=== PATIENT | male | born 1960 | race Caucasian/White ===

== ENCOUNTER 2017-04-28 15:55 | Emergency (ER) | payer SELFPAY ==
[~2017-04-28] VITALS: Ht 170.2 cm; Wt 131.2 kg
[~2017-04-28 15:55] MED LIST: ASPI81TA60 PO; FENO160T10 PO; LASI40TA PO; LISI10TA4 PO; METO50TA7 PO; OMEP40CA2 PO; PROAAER10 INH; SIMV80TA PO; SYNT50TA PO; VITA10002 PO; VITA1CAP40 PO
[2017-04-28] MEDS ORDERED: IBUP-1022 PO (17:14)
[2017-04-28] MEDS ORDERED: ROBA500T PO (17:14)
[2017-04-28 17:33] VITALS: BP 165/91
== END 2017-04-28 17:35 | disposition home or self-care (01) ==
LOC: M ED 15:55
DX: M54.31 Sciatica, right side (principal); I25.10 Atherosclerotic heart disease of native coronary artery without angina pectoris; I25.2 Old myocardial infarction; I10 Essential (primary) hypertension; G89.29 Other chronic pain; J45.909 Unspecified asthma, uncomplicated; Z87.891 Personal history of nicotine dependence; Z88.1 Allergy status to other antibiotic agents; Z79.82 Long term (current) use of aspirin; Z79.899 Other long term (current) drug therapy

== ENCOUNTER → 2017-08-05 | Outpatient (REF) | payer OTHER ==
[~2017-08-05] MED LIST changes: +IBUP-1022 PO; +ROBA500T PO
[2017-08-05 13:42] LABS: BASO # 0.1 10^3/uL (0.0-0.2); BASO % 0.7 % (0.0-1.0); EOS # 0.2 10^3/uL (0.0-0.50); EOS % 3.1 % (0.0-3.0); LYMPH # 1.4 10^3/uL (1.5-4.5); LYMPH % 20.7 % (24.0-44.0); MEAN CORPUSCULAR HEMOGLOBIN 29.5 pg (27.0-33.0); MEAN CORPUSCULAR HGB CONC 32.5 g/dl (32.0-36.5); MEAN CORPUSCULAR VOLUME 90.7 fl (80.0-96.0); MONO # 0.8 10^3/uL (0.0-0.8); MONO % 12.4 % (0.0-5.0); NEUTROPHILS # 4.2 10^3/uL (1.8-7.7); NEUTROPHILS % 62.1 % (36.0-66.0); PLATELET COUNT, AUTOMATED 244 10^3/uL (150-450); RED CELL DISTRIBUTION WIDTH 12.8 % (11.5-14.5); WHITE BLOOD COUNT 6.8 10^3/uL (4.0-10.0)
[2017-08-05 14:19] LABS: ALBUMIN 3.6 GM/DL (3.2-5.2); ALBUMIN/GLOBULIN RATIO 0.97 (1.00-1.93); ALKALINE PHOSPHATASE 106 U/L (45-117); ALT/SGPT 39 U/L (12-78); ANION GAP 8 MEQ/L (8-16); AST/SGOT 22 U/L (7-37); BILIRUBIN,TOTAL 0.3 MG/DL (0.2-1.0); BLOOD UREA NITROGEN 16 MG/DL (7-18); CALCIUM LEVEL 9.3 MG/DL (8.5-10.1); CARBON DIOXIDE LEVEL 29 MEQ/L (21-32); CHLORIDE LEVEL 106 MEQ/L (98-107); CREATININE FOR GFR 1.25 MG/DL (0.70-1.30); GLOMERULAR FILTRATION RATE > 60.0 (>56); GLUCOSE, FASTING 91 MG/DL (70-105); POTASSIUM SERUM 4.6 MEQ/L (3.5-5.1); SODIUM LEVEL 143 MEQ/L (136-145); TOTAL PROTEIN 7.3 GM/DL (6.4-8.2)
== END ==
LOC: M SFHCPLAZ 11:40
PROVIDERS: ATTEND Family Medicine
DX: N18.3 Chronic kidney disease, stage 3 (moderate) (principal)

== ENCOUNTER → 2018-01-06 | Outpatient (REF) | payer OTHER ==
[2018-01-06 18:32] LABS: ESTIMATED AVERAGE GLUCOSE 126 MG/DL (60-110); VITAMIN B12 LEVEL 1102 PG/ML (247-911)
[2018-01-06 18:33] LABS: ALBUMIN/GLOBULIN RATIO 0.93 (1.00-1.93); ALKALINE PHOSPHATASE 83 U/L (45-117); ALT/SGPT 31 U/L (12-78); ANION GAP 6 MEQ/L (8-16); AST/SGOT 29 U/L (7-37); BILIRUBIN,TOTAL 0.5 MG/DL (0.2-1.0); BLOOD UREA NITROGEN 18 MG/DL (7-18); C REACTIVE PROTEIN QUANTITATIV 1.07 MG/DL (0.00-0.30); CALCIUM LEVEL 9.5 MG/DL (8.5-10.1); CARBON DIOXIDE LEVEL 31 MEQ/L (21-32); CHLORIDE LEVEL 105 MEQ/L (98-107); CHOLESTEROL LEVEL 187 MG/DL (<200); CHOLESTEROL RISK RATIO 4.921 (<5); CPK CREATINE PHOSPHOKINASE 124 U/L (39-308); CREATININE FOR GFR 1.47 MG/DL (0.70-1.30); FREE T4 1.19 NG/DL (0.76-1.46); GLOMERULAR FILTRATION RATE 52.6 (>56); GLUCOSE, FASTING 72 MG/DL (70-100); HDL CHOLESTEROL 38 MG/DL (>40); LDL CHOLESTEROL 113.8 MG/DL (<100); MAGNESIUM LEVEL 2.1 MG/DL (1.8-2.4); NON-HDL-C 149 MG/DL; POTASSIUM SERUM 4.4 MEQ/L (3.5-5.1); PSA SCREENING 0.69 NG/ML (< 4.0); SODIUM LEVEL 142 MEQ/L (136-145); TOTAL PROTEIN 8.3 GM/DL (6.4-8.2); TRIGLYCERIDES LEVEL 176 MG/DL (<150)
[2018-01-06 19:15] LABS: BASO # 0.1 10^3/uL (0.0-0.2); BASO % 0.7 % (0.0-1.0); EOS # 0.1 10^3/uL (0.0-0.50); EOS % 1.7 % (0.0-3.0); HEMATOCRIT 45.8 % (42.0-52.0); HEMOGLOBIN 15.2 g/dl (13.5-17.5); IMMATURE GRANULOCYTE % 0.7 % (0-3.0); LYMPH # 1.9 10^3/uL (1.5-4.5); LYMPH % 25.7 % (24.0-44.0); MEAN CORPUSCULAR HEMOGLOBIN 30.1 pg (27.0-33.0); MEAN CORPUSCULAR HGB CONC 33.2 g/dl (32.0-36.5); MEAN CORPUSCULAR VOLUME 90.7 fl (80.0-96.0); MONO # 0.7 10^3/uL (0.0-0.8); MONO % 9.3 % (0.0-5.0); NEUTROPHILS # 4.6 10^3/uL (1.8-7.7); NEUTROPHILS % 61.9 % (36.0-66.0); PLATELET COUNT, AUTOMATED 326 10^3/uL (150-450); RED BLOOD COUNT 5.05 10^6/uL (4.30-6.10); RED CELL DISTRIBUTION WIDTH 12.5 % (11.5-14.5); RETIC HEMOGLOBIN EQUIVALENT 35.1 pg (24-36); RETICULOCYTE # 118.2 10^9/L (17-77); RETICULOCYTE % 2.3 % (0.5-1.5); WHITE BLOOD COUNT 7.5 10^3/uL (4.0-10.0)
== END ==
LOC: M SFHCPLAZ 15:53
DX: E78.5 Hyperlipidemia, unspecified (principal); E03.9 Hypothyroidism, unspecified; I10 Essential (primary) hypertension; R73.01 Impaired fasting glucose; E53.8 Deficiency of other specified B group vitamins; Z12.5 Encounter for screening for malignant neoplasm of prostate
CPT/HCPCS: 82550

== ENCOUNTER 2018-06-17 15:57 | Emergency (ER) | payer OTHER ==
[2018-06-17 17:41] LABS: KETONE, URINE AUTO RFX NEGATIVE (NEGATIVE); LEUKOCYTE ESTERASE UR AUTO RFX 2+ (NEGATIVE); MUCUS, URINE RFX SMALL (NEGATIVE); NITRITE, URINE AUTO RFX NEGATIVE (NEGATIVE); RBC, URINE AUTO RFX 26 /HPF (0-3); SPECIFIC GRAVITY UR AUTO RFX 1.024 (1.002-1.035); SQUAM EPITHELIAL CELL UR AURFX 0 /HPF (0-6); WBC, URINE AUTO RFX 105 /HPF (0-3)
[2018-06-17] MEDS: NITROFURANTOIN (MACROBID) 100 MG CAP PO (18:01)
== END 2018-06-17 18:06 | disposition home or self-care (01) ==
LOC: M ED 15:57
DX: N39.0 Urinary tract infection, site not specified (principal); I10 Essential (primary) hypertension; J45.909 Unspecified asthma, uncomplicated; I25.10 Atherosclerotic heart disease of native coronary artery without angina pectoris; I25.2 Old myocardial infarction; E03.9 Hypothyroidism, unspecified; N28.9 Disorder of kidney and ureter, unspecified; Z87.09 Personal history of other diseases of the respiratory system; Z79.899 Other long term (current) drug therapy; Z79.82 Long term (current) use of aspirin; Z79.890 Hormone replacement therapy; Z88.1 Allergy status to other antibiotic agents; Z87.891 Personal history of nicotine dependence
CPT/HCPCS: 71046

== ENCOUNTER → 2018-08-24 | Outpatient (CLI) | payer OTHER | LOC: M LRY 15:20 | DX: J45.901 Unspecified asthma with (acute) exacerbation (principal) | CPT/HCPCS: 71046 ==

== ENCOUNTER → 2018-09-22 | Outpatient (REF) | payer OTHER ==
[~2018-09-22] MED LIST changes: -LASI40TA PO; +LASI40TA9 PO; +MACR100C43 PO; -SIMV80TA PO; +SIMV80TA13 PO; -VITA1CAP40 PO; +VITA50005 PO
[2018-09-22 14:09] LABS: BASO % 0.4 % (0.0-1.0); EOS # 0.2 10^3/uL (0.0-0.50); EOS % 2.7 % (0.0-3.0); HEMATOCRIT 43.6 % (42.0-52.0); HEMOGLOBIN 14.4 g/dl (13.5-17.5); LYMPH # 1.7 10^3/uL (1.5-4.5); LYMPH % 25.3 % (24.0-44.0); MEAN CORPUSCULAR HEMOGLOBIN 30.1 pg (27.0-33.0); MONO # 0.7 10^3/uL (0.0-0.8); MONO % 10.1 % (0.0-5.0); NEUTROPHILS # 4.1 10^3/uL (1.8-7.7); NEUTROPHILS % 60.8 % (36.0-66.0); PLATELET COUNT, AUTOMATED 272 10^3/uL (150-450); RED BLOOD COUNT 4.79 10^6/uL (4.30-6.10); WHITE BLOOD COUNT 6.7 10^3/uL (4.0-10.0)
[2018-09-22 14:40] LABS: ALBUMIN 3.5 GM/DL (3.2-5.2); BILIRUBIN,TOTAL 0.2 MG/DL (0.2-1.0); CALCIUM LEVEL 9.1 MG/DL (8.5-10.1); CHOLESTEROL RISK RATIO 4.885 (<5); CREATININE FOR GFR 1.77 MG/DL (0.70-1.30); FREE T4 0.94 NG/DL (0.76-1.46); GLOMERULAR FILTRATION RATE 42.3 (>56); POTASSIUM SERUM 4.5 MEQ/L (3.5-5.1); THYROID STIMULATING HORMONE 1.49 uIU/ML (0.358-3.740); TOTAL PROTEIN 7.4 GM/DL (6.4-8.2)
[2018-09-22 16:04] LABS: HEMOGLOBIN A1c 6.8 %
== END ==
LOC: M SFHCPLAZ 13:06
PROVIDERS: ATTEND Family Medicine
DX: N18.3 Chronic kidney disease, stage 3 (moderate) (principal); E78.5 Hyperlipidemia, unspecified; E03.9 Hypothyroidism, unspecified; R73.01 Impaired fasting glucose

== ENCOUNTER → 2019-11-09 | Outpatient (REF) | payer OTHER, SELFPAY ==
[~2019-11-09] MED LIST changes: +CYAN100049 PO; -OMEP40CA2 PO; +OMEP40CA97 PO; -VITA10002 PO
[2019-11-09 14:17] LABS: ALBUMIN 3.8 GM/DL (3.2-5.2); BILIRUBIN,TOTAL 0.7 MG/DL (0.2-1.0); CALCIUM LEVEL 9.4 MG/DL (8.5-10.1); CREATININE FOR GFR 1.5 MG/DL (0.70-1.30); POTASSIUM SERUM 4.8 MEQ/L (3.5-5.1); THYROID STIMULATING HORMONE 1.2 uIU/ML (0.358-3.740); TOTAL PROTEIN 7.6 GM/DL (6.4-8.2)
[2019-11-09 14:22] LABS: HEMOGLOBIN A1c 6.4 %
== END ==
LOC: M SFHCPLAZ 10:38
PROVIDERS: ATTEND Family Medicine
DX: R73.01 Impaired fasting glucose (principal); N18.3 Chronic kidney disease, stage 3 (moderate); E03.9 Hypothyroidism, unspecified

== ENCOUNTER 2020-02-03 07:30 | Emergency (ER) | payer SELFPAY ==
[~2020-02-03] VITALS: Ht 167.6 cm; Wt 126.4 kg
[2020-02-03] MEDS ORDERED: FLUTISP (07:53)
[2020-02-03] MEDS ORDERED: B-12100020 PO (07:53)
[2020-02-03] MEDS ORDERED: VITA50005 PO (07:53)
[2020-02-03] MEDS ORDERED: OMEP-221 PO (07:53)
[2020-02-03] MEDS ORDERED: [UNRECOGNIZED DRUG - CODE] PO (07:53)
[2020-02-03] MEDS ORDERED: AUGM875T28 PO (08:59)
[2020-02-03 09:41] VITALS: BP 134/73
== END 2020-02-03 09:42 | disposition home or self-care (01) ==
LOC: M ED 07:30
DX: R04.0 Epistaxis (principal); I25.10 Atherosclerotic heart disease of native coronary artery without angina pectoris; J45.909 Unspecified asthma, uncomplicated; E78.5 Hyperlipidemia, unspecified; I12.9 Hypertensive chronic kidney disease with stage 1 through stage 4 chronic kidney disease, or unspecified chronic kidney disease; N18.9 Chronic kidney disease, unspecified; K21.9 Gastro-esophageal reflux disease without esophagitis; E03.9 Hypothyroidism, unspecified; Z88.1 Allergy status to other antibiotic agents; Z79.899 Other long term (current) drug therapy; Z79.82 Long term (current) use of aspirin; Z79.2 Long term (current) use of antibiotics

== ENCOUNTER 2020-04-09 09:32 | Emergency (ER) | payer BC, SELFPAY ==
[~2020-04-09] VITALS: Ht 170.2 cm; Wt 142.8 kg
[~2020-04-09 09:32] MED LIST changes: +AUGM875T28 PO; +B-12100020 PO; +FLUTISP; +OMEP-221 PO; +[UNRECOGNIZED DRUG - CODE] PO
[2020-04-09 10:24] LABS: BASO % 0.5 % (0.0-1.0); EOS # 0.2 10^3/uL (0.0-0.5); EOS % 2.5 % (0.0-3.0); HEMOGLOBIN 15.8 g/dl (13.5-17.5); LYMPH # 1.8 10^3/uL (1.5-5.0); LYMPH % 27.1 % (24.0-44.0); MEAN CORPUSCULAR HEMOGLOBIN 29.6 pg (27.0-33.0); MEAN CORPUSCULAR HGB CONC 31.6 g/dl (32.0-36.5); MEAN CORPUSCULAR VOLUME 93.6 fl (80.0-96.0); MONO # 0.7 10^3/uL (0.0-0.8); MONO % 11.1 % (0.0-5.0); NEUTROPHILS # 3.8 10^3/uL (1.5-8.5); NEUTROPHILS % 58.3 % (36.0-66.0); PLATELET COUNT, AUTOMATED 275 10^3/uL (150-450); RED BLOOD COUNT 5.34 10^6/uL (4.30-6.10); WHITE BLOOD COUNT 6.5 10^3/uL (4.0-10.0)
[2020-04-09] MEDS ORDERED: FUROSEMIDE 40MG/4ML VIAL (J1940) IV ONE (10:45)
[2020-04-09 11:21] LABS: ALBUMIN 3.7 GM/DL (3.2-5.2); ALT/SGPT 40 U/L (12-78); BILIRUBIN,DIRECT < 0.1 MG/DL (0.0-0.2); BILIRUBIN,TOTAL 0.5 MG/DL (0.2-1.0); NT-PRO BNP 227 PG/ML (<125); TOTAL PROTEIN 7.8 GM/DL (6.4-8.2)
--- NOTE | 2020-04-09 12:00 | REP ---
REASON: Chest pain. COMPARISON: 08/24/2018 FINDINGS: The technique utilized in obtaining the radiograph has magnified the cardiac silhouette and accentuated the interstitial markings. The superior mediastinal structures are midline. The cardiac silhouette is unremarkable in size, shape, and position. The diaphragmatic surfaces of the lungs are regular, and the costophrenic angles are clear. The pulmonary morales are clear. The imaged osseous structures are intact. IMPRESSION: There is no acute cardiopulmonary disease. No change from the prior exam. Electronically Signed by Ney Farooq DO 04/09/2020 12:56 P
[2020-04-09 12:20] LABS: APPEARANCE, URINE CLEAR (CLEAR); BACTERIA, URINE AUTO NEGATIVE (NEGATIVE); BILIRUBIN, URINE AUTO NEGATIVE (NEGATIVE); BLOOD, URINE BLOOD NEGATIVE (NEGATIVE); COLOR, URINE STRAW (YELLOW); GLUCOSE, URINE (UA) AUTO NEGATIVE (NEGATIVE); KETONE, URINE AUTO NEGATIVE (NEGATIVE); LEUKOCYTE ESTERASE, URINE AUTO NEGATIVE (NEGATIVE); NITRITE, URINE AUTO NEGATIVE (NEGATIVE); PROTEIN, URINE AUTO NEGATIVE (NEGATIVE); RBC, URINE AUTO 0 /HPF (0-3); SPECIFIC GRAVITY URINE AUTO 1.009 (1.002-1.035); SQUAMOUS EPITHELIAL CELL UR AU 0 /HPF (0-6); UROBILINOGEN, URINE AUTO 0.2 mg/dL (0.0-2.0); WBC, URINE AUTO 0 /HPF (0-3)
[2020-04-09 13:15] VITALS: BP 125/67
[2020-04-09] MEDS ORDERED: LASI40TA9 PO (13:17)
--- NOTE | 2020-04-09 17:48 | ECGEPIP ---
[facility] - ED Test Date: 2020-04-09 Pat Name: JAIME VEGA Department: Room: - Gender: Male Solution Director: christina : 1960 Requested By: JAIME Emanuel Order Number: [id number] Reading MD: Rukhsana Newell Measurements Intervals [place] Rate: 57 P: 46 NE: 182 QRS: 39 QRSD: 89 T: 72 QT: 401 QTc: 391 Interpretive Statements SINUS BRADYCARDIA ANTEROSEPTAL MYOCARDIAL INFARCTION, OF INDETERMINATE AGE INFERIOR INFARCT, OF INDETERMINATE AGE CLINICAL CORRELATION Electronically Signed on 04-09-2020 17:47:47 EDT by Rukhsana Newell
--- NOTE | 2020-04-09 17:53 | ECGEPIP ---
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
== END 2020-04-09 13:28 | disposition home or self-care (01) ==
LOC: M ED 09:32
DX: I16.0 Hypertensive urgency (principal); R00.1 Bradycardia, unspecified; I25.10 Atherosclerotic heart disease of native coronary artery without angina pectoris; I10 Essential (primary) hypertension; E78.5 Hyperlipidemia, unspecified; J45.909 Unspecified asthma, uncomplicated; N18.3 Chronic kidney disease, stage 3 (moderate); K21.9 Gastro-esophageal reflux disease without esophagitis; Z87.891 Personal history of nicotine dependence; Z82.49 Family history of ischemic heart disease and other diseases of the circulatory system; Z79.82 Long term (current) use of aspirin; Z79.899 Other long term (current) drug therapy; Z88.1 Allergy status to other antibiotic agents
CPT/HCPCS: 71045; 80047; 80076; 81001; 83880; 84443; 85025; 93005; 93041; 94760; 96374; 99285; J1940

== ENCOUNTER → 2020-07-23 | Outpatient (CLI) | payer BC | LOC: M LABSMTC 13:42 | PROVIDERS: ATTEND Family Medicine | DX: Z20.828 Contact with and (suspected) exposure to other viral communicable diseases (principal) | CPT/HCPCS: C9803; U0003 ==

== ENCOUNTER → 2020-10-10 | Outpatient (REF) | payer BC ==
[2020-10-10 13:54] LABS: HEMOGLOBIN A1c 6.1 %
[2020-10-10 14:17] LABS: ALBUMIN 3.8 GM/DL (3.2-5.2); BILIRUBIN,TOTAL 0.4 MG/DL (0.2-1.0); CALCIUM LEVEL 9.1 MG/DL (8.8-10.2); CHOLESTEROL RISK RATIO 4.848 (<5); CREATININE FOR GFR 1.76 MG/DL (0.70-1.30); FREE T4 1.09 NG/DL (0.76-1.46); GLOMERULAR FILTRATION RATE 42.3 (>49); POTASSIUM SERUM 4.8 MEQ/L (3.5-5.1); THYROID STIMULATING HORMONE 2.59 uIU/ML (0.358-3.740); TOTAL PROTEIN 7.5 GM/DL (6.4-8.2)
[2020-10-10 14:32] LABS: CREATININE, URINE 18.9 MG/DL; MALB URINE SIEMENS < 5.0 MG/L; MAU/CREAT RATIO 26.4 MCG/MG (0.0-30.0)
== END ==
LOC: M SFHCPLAZ 11:10
PROVIDERS: ATTEND Family Medicine
DX: R73.01 Impaired fasting glucose (principal); E03.9 Hypothyroidism, unspecified; I10 Essential (primary) hypertension; E78.5 Hyperlipidemia, unspecified; Z12.5 Encounter for screening for malignant neoplasm of prostate

== ENCOUNTER → 2021-05-15 | Outpatient (CLI) | payer BC ==
[~2021-05-15] MED LIST changes: +ERGO500029 PO; +LISI10TA22 PO; -LISI10TA4 PO; +OMEP40CA4 PO; -OMEP40CA97 PO
--- NOTE | 2021-05-15 14:17 | REP ---
INDICATION: CKD STAGE 3A. COMPARISON: 10/12/2007. TECHNIQUE: Real-time sonographic evaluation of the kidneys is performed. The study is limited by patient body habitus. FINDINGS: The left kidney demonstrates severe cortical thinning and hyperechoic echotexture. There is no hydronephrosis bilaterally. No renal mass is visualized. The right kidney measures 13.0 x 7.1 x 6.8 cm. Left renal dimensions are 6.2 x 4.3 x 4.0 cm. The urinary bladder is unremarkable. Bladder measures 12.6 x 7.4 x 5.9 cm, total volume 359 cc. IMPRESSION: Severe left renal atrophy. No hydronephrosis. <Electronically signed by Adebayo Rhoades > 05/15/21 [id number]
== END ==
LOC: M RAD 13:41
PROVIDERS: ATTEND Internal Medicine Nephrology
DX: N18.30 Chronic kidney disease, stage 3 unspecified (principal); N26.1 Atrophy of kidney (terminal)

== ENCOUNTER 2021-07-03 16:00 | Emergency (ER) | payer BC ==
[~2021-07-03] VITALS: Ht 170.2 cm; Wt 139.9 kg
[~2021-07-03 16:00] MED LIST changes: -FLUTISP; +FLUTISP NARES
[2021-07-03] MEDS: COMBIVENT RESPIMAT 100-20MCG INHALER 4GM INH SCH ×3 (19:05→21:28)
[2021-07-03] MEDS ORDERED: ACETAMINOPHEN 500 MG TAB PO ONE (19:30)
[2021-07-03 20:31] LABS: BASO % 0.2 % (0.0-1.0); HEMATOCRIT 42.1 % (42.0-52.0); HEMOGLOBIN 14.1 g/dl (13.5-17.5); LYMPH # 0.8 10^3/uL (1.5-5.0); LYMPH % 12.4 % (24.0-44.0); MEAN CORPUSCULAR HEMOGLOBIN 30.1 pg (27.0-33.0); MEAN CORPUSCULAR HGB CONC 33.5 g/dl (32.0-36.5); MEAN CORPUSCULAR VOLUME 89.8 fl (80.0-96.0); MONO # 0.4 10^3/uL (0.0-0.8); MONO % 6.9 % (2.0-8.0); NEUTROPHILS # 5.1 10^3/uL (1.5-8.5); NEUTROPHILS % 80.2 % (36.0-66.0); PLATELET COUNT, AUTOMATED 204 10^3/uL (150-450); RED BLOOD COUNT 4.69 10^6/uL (4.30-6.10); WHITE BLOOD COUNT 6.4 10^3/uL (4.0-10.0)
[2021-07-03 21:02] LABS: ALBUMIN 2.9 GM/DL (3.2-5.2); ALT/SGPT 27 U/L (12-78); BILIRUBIN,TOTAL 0.5 MG/DL (0.2-1.0); BLOOD UREA NITROGEN 21 MG/DL (7-18); CALCIUM LEVEL 8.1 MG/DL (8.8-10.2); CARBON DIOXIDE LEVEL 27 MEQ/L (21-32); CHLORIDE LEVEL 98 MEQ/L (98-107); CK-MB VALUE MASS < 1.0 NG/ML (<3.6); CPK CREATINE PHOSPHOKINASE 473 U/L (39-308); GLOMERULAR FILTRATION RATE 38.7 (>49); GLUCOSE, FASTING 106 MG/DL (70-100); LDH LACTATE DEHYDROGENASE 300 U/L (87-241); MB/CK RELATIVE INDEX 0.21 (< OR =4); NT-PRO BNP 208 PG/ML (<125); POTASSIUM SERUM 4.2 MEQ/L (3.5-5.1); SODIUM LEVEL 135 MEQ/L (136-145); TOTAL PROTEIN 7.4 GM/DL (6.4-8.2); TROPONIN I < 0.02 NG/ML (< 0.10)
[2021-07-03 22:08] VITALS: O2SAT 92
--- NOTE | 2021-07-03 22:44 | REPVR ---
PROCEDURE INFORMATION: Exam: XR Chest Exam date and time: 07/03/2021 9:18 PM Age: 60 years old Clinical indication: Coronavirus workup TECHNIQUE: Imaging protocol: XR of the chest. Views: 1 view. COMPARISON: CR PORTABLE CHEST X-RAY 04/09/2020 10:23 AM (The report from this study was not available for review at the time of this interpretation.) FINDINGS: Lungs: There are airspace opacities in a predominantly peripheral distribution in both lungs. Pleural spaces: Unremarkable. No pleural effusion. No pneumothorax. Heart/Mediastinum: Unremarkable. No cardiomegaly. Bones/joints: Unremarkable. IMPRESSION: Airspace opacities in a predominantly peripheral distribution in both lungs, which can be seen with pneumonia, including COVID-19 pneumonia. Electronically signed by: Juan Brooks On 07/03/2021 22:44:00 PM
[2021-07-03] MEDS ORDERED: IBUPROFEN 800 MG TAB PO ONE (23:35)
[2021-07-04 00:12] LABS: CK-MB VALUE MASS 1.2 NG/ML (<3.6); CPK CREATINE PHOSPHOKINASE 650 U/L (39-308); MB/CK RELATIVE INDEX 0.18 (< OR =4); TROPONIN I < 0.02 NG/ML (< 0.10)
[2021-07-04 01:35] LABS: ABG BASE EXCESS -1.7 (-2.0-2.0); ABG HCO3 22.3 MEQ/L (22.0-26.0); ABG O2 SATURATION 95.7 % (95.0-99.0); ABG PARTIAL PRESSURE CO2 35.8 mmHg (35.0-45.0); ABG PARTIAL PRESSURE O2 75.5 mmHg (75.0-100.0); ABG TOTAL CO2 23.4 MEQ/L (23.0-31.0); ABG pH (ARTERIAL) 7.413 UNITS (7.350-7.450)
[2021-07-04] MEDS ORDERED: TESS100C PO (01:59)
[2021-07-04] MEDS ORDERED: ONDA4TAB6 PO (01:59)
[2021-07-04 03:10] VITALS: BP 129/64
--- NOTE | 2021-07-04 06:27 | ECGEPIP ---
[facility] - ED Test Date: 2021-07-03 Pat Name: HORACIO VEGA Department: Room: - Gender: Male Inspector Toys: RODGER : 1960 Requested By: FAWN Aviles PA-C Order Number: [id number] Reading MD: Horacio Jamil Measurements Intervals [place] Rate: 78 P: 78 [place]: 156 QRS: 55 QRSD: 90 T: 79 QT: 374 QTc: 426 Interpretive Statements Normal sinus rhythm Anteroseptal infarct , age undetermined Normalized ST changes when compared to tracing done 04-09-20 Baseline artifact Electronically Signed on 07-04-2021 6:27:07 EDT by Horacio Jamil
== END 2021-07-04 03:12 | disposition home or self-care (01) ==
LOC: M ED 16:00
DX: U07.1 COVID-19 (principal); E66.9 Obesity, unspecified; I25.10 Atherosclerotic heart disease of native coronary artery without angina pectoris; I25.2 Old myocardial infarction; E11.9 Type 2 diabetes mellitus without complications; I10 Essential (primary) hypertension; J45.909 Unspecified asthma, uncomplicated; K21.9 Gastro-esophageal reflux disease without esophagitis; E78.5 Hyperlipidemia, unspecified; K76.0 Fatty (change of) liver, not elsewhere classified; N18.30 Chronic kidney disease, stage 3 unspecified; Z87.09 Personal history of other diseases of the respiratory system; Z87.01 Personal history of pneumonia (recurrent); Z87.891 Personal history of nicotine dependence; Z79.82 Long term (current) use of aspirin; Z79.899 Other long term (current) drug therapy; Z88.1 Allergy status to other antibiotic agents

== ENCOUNTER 2021-07-06 09:22 | Outpatient (CLI) | payer BC ==
--- NOTE | 2021-07-04 04:46 | HPEPDOC ---
[facility] Medical History & Physical Date of Admission Jul 04, 2021 Date of Service: Jul 04, 2021 Primary Care Physician: Chris Nation M.D. Attending Physician: JIMBO TELLEZ MD History and Physical TIME OF SERVICE: 225AM CHIEF COMPLAINT: shortness of breath HISTORY OF PRESENT ILLNESS: Despite receiving 2 doses of the Moderna vaccine Mr. Perdue has had shortness of breath, chest tightness and diarrhea for about 7 days; he denies knowledge of exposure to anyone with COVID. REVIEW OF SYSTEMS: per HPI PAST MEDICAL/ SURGICAL HISTORY: Asthma, Chronic CAD s/p PCI to RCA, DLP, Pre-DM, Hypothyroidism, essential HTN, unspecified CKD (has 1 working kidney), MARTINEZ, Class 3 obesity, L4/L5 discectomy, tonsillectomy w adenoidectomy FAMILY HISTORY: HTN, DLP, Asthma, Lung cancer, CKD, CAD SOCIAL HISTORY: He is a former smoker ALLERGIES: Please see below. HOME MEDICATIONS: Please see below. PHYSICAL EXAMINATION: VITAL SIGNS: T 98.8, HR 71, BP 129/64, O2 100% on RA GENERAL APPEARANCE: well-nourished and developed/ NAD HEENT: EOMI / mask covering lower face CARDIOVASCULAR: RRR/NMRG LUNGS: coughing occasionally slight expiratory wheezing / not using accessory muscles/ able to speak full sentences w/o having to stop to take a break ABDOMEN: contour convex MUSCULOSKELETAL: NCAT INTEGUMENT: not flushed / slightly diaphoretic NEUROLOGICAL: speech not dysarthric PSYCHIATRIC: A&O / able to understand and follow all commands LABORATORY DATA: CBC, CMP, Coags reviewed / ABG pH 7.4, PCO2 35, PO2 75.5 IMAGING: Chest xray "IMPRESSION: Airspace opacities in a predominantly peripheral distribution in both lungs, which can be seen with pneumonia, including COVID-19 pneumonia. MICROBIOLOGY: + COVID 19 ASSESSMENT: is a 60 yr old M w a hx of Asthma, CAD, HTN, DLP, Pre-DM, Hypothyroidism, unspecified CKD, MARTINEZ, obesity who has a break through COVID-19 infection without hypoxemia after receiving Moderna vaccines; he will return on for MAB infusion PLAN: 1 Break through COVID 19 infection Consent was obtained. Plan: place outpatient COVID order set Home Medications Scheduled Aspirin (Aspirin) 81 Mg Tab, 81 MG PO DAILY Benzonatate (Tessalon Perle) 100 Mg Capsule, 1 CAP PO TID for cough Cyanocobalamin (Vitamin B-12) (B-12) 1,000 Mcg Tablet, PO DAILY Ergocalciferol (Vitamin D2) (Vitamin D2) 50,000 Units Cap, PO weekly Fenofibrate (Fenofibrate) 160 Mg Tab, 160 MG PO QPM Fluticasone Propionate (Fluticasone Propionate) 16 Gm [place].susp, NA DAILY Furosemide (Lasix) 40 Mg Tab, 40 MG PO DAILY Furosemide (Lasix) 40 Mg Tablet, 1 TAB PO DAILY Levothyroxine Sodium (Synthroid) 50 Mcg Tab, 50 MCG PO 0700 Lisinopril (Lisinopril) 10 Mg Tab, 10 MG PO BID Metoprolol Tartrate (Metoprolol Tartrate) 50 Mg Tab, 50 MG PO BID Omeprazole (Omeprazole) 40 Mg Capsule.dr, PO DAILY Simvastatin - High Dose (Simvastatin) 80 Mg Tab, 80 MG PO QPM Scheduled PRN Albuterol Sulfate (Proair Hfa) 108 Mcg/Act Aer, 108 MCG INH Q6H PRN for SOB/WHEEZING Ondansetron (Ondansetron Odt) 4 Mg Tab.rapdis, 4 MG PO Q6-8HP PRN for nausea/vomiting Allergies Coded Allergies: clarithromycin (Verified Allergy, Intermediate, bumps on arms, 02/03/20) A-FIB/CHADSVASC A-FIB History Current/History of A-Fib/PAF?: No Current PO Anticoag Therapy: No JIMBO TELLEZ MD Jul 04, 2021 04:46
[~2021-07-06 09:22] MED LIST changes: +ACETAMINOPHEN TAB 650MG DOSE (2X325MG) PO PRN; +ALBUTEROL 90 MCG/ACT 8GM HFA INHALER INH PRN; +ALBUTEROL SULFATE 2.5 MG/0.5 ML INH NEB SOLN INH PRN; +CASIRIVIMAB/IMDEVIMAB 1,200 MG in NS 250 ML IV ONE; +EPINEPHrine INJ 1 MG/ML 1ML AMP IM PRN; +NS 1,000 ML IV SCH; +ONDA4TAB6 PO; +TESS100C PO; +diphenhydrAMINE 50MG/ML VIAL (J1200) IV PRN; +methylPREDNISolone 125MG 2ML VIAL IV PRN
[2021-07-06] MEDS ORDERED: FLUT1INH3 INH (14:04)
[2021-07-06] MEDS ORDERED: LEVO75TA4 PO (14:04)
[2021-07-06] MEDS ORDERED: ASPI81TA26 PO (16:40)
[2021-07-06] MEDS ORDERED: BENZ-18 PO (16:40)
[2021-07-06] MEDS ORDERED: LISI20TA33 PO (16:40)
[2021-07-06] MEDS ORDERED: ZOCO80TA PO (16:40)
[2021-07-07] MEDS ORDERED: METO1TAB32 PO (11:15)
== END 2021-07-06 09:30 | disposition home or self-care (01) ==
LOC: M OPCLI4 09:22 → M MS4PR 09:22 → M OPCLI4 09:30
PROVIDERS: ATTEND Internal Medicine
DX: Z53.9 Procedure and treatment not carried out, unspecified reason (principal)

== ENCOUNTER 2021-07-06 10:07 | Observation (INO) | payer BC ==
[~2021-07-06] VITALS: Ht 170.2 cm; Wt 136.5 kg
[~2021-07-06 10:07] MED LIST changes: -ACETAMINOPHEN TAB 650MG DOSE (2X325MG) PO PRN; -ALBUTEROL 90 MCG/ACT 8GM HFA INHALER INH PRN; -ALBUTEROL SULFATE 2.5 MG/0.5 ML INH NEB SOLN INH PRN; -CASIRIVIMAB/IMDEVIMAB 1,200 MG in NS 250 ML IV ONE; -EPINEPHrine INJ 1 MG/ML 1ML AMP IM PRN; -NS 1,000 ML IV SCH; -diphenhydrAMINE 50MG/ML VIAL (J1200) IV PRN; -methylPREDNISolone 125MG 2ML VIAL IV PRN
[2021-07-06] MEDS ORDERED: NS 500 ML IV ONE ×3 (10:25→12:15)
[2021-07-06 10:49] LABS: BASO % 0.4 % (0.0-1.0); EOS % 0.1 % (0.0-3.0); HEMATOCRIT 42.8 % (42.0-52.0); HEMOGLOBIN 13.9 g/dl (13.5-17.5); MEAN CORPUSCULAR HEMOGLOBIN 28.9 pg (27.0-33.0); MEAN CORPUSCULAR HGB CONC 32.5 g/dl (32.0-36.5); MONO # 0.6 10^3/uL (0.0-0.8); NEUTROPHILS # 5.4 10^3/uL (1.5-8.5); NEUTROPHILS % 76.4 % (36.0-66.0); PLATELET COUNT, AUTOMATED 291 10^3/uL (150-450); RED BLOOD COUNT 4.81 10^6/uL (4.30-6.10); WHITE BLOOD COUNT 7.1 10^3/uL (4.0-10.0)
[2021-07-06 11:05] LABS: INR 1.1; PROTHROMBIN TIME 14.6 SECONDS (12.7-14.5)
[2021-07-06 11:06] LABS: PARTIAL THROMBOPLASTIN TIME 37.7 SECONDS (25.9-37.0)
[2021-07-06 11:09] LABS: D-DIMER QUANT 655.59 ng/ml (<500)
[2021-07-06 12:18] LABS: ABG BASE EXCESS -4.9 (-2.0-2.0); ABG PARTIAL PRESSURE CO2 36.6 mmHg (35.0-45.0); ABG PARTIAL PRESSURE O2 111.6 mmHg (75.0-100.0); ABG STANDARD HCO3 20.5 MEQ/L (22.0-26.0); ABG TOTAL CO2 21.1 MEQ/L (23.0-31.0); ABG pH (ARTERIAL) 7.355 UNITS (7.350-7.450)
[2021-07-06 12:35] LABS: ALBUMIN 2.6 GM/DL (3.2-5.2); ALT/SGPT 27 U/L (12-78); BILIRUBIN,TOTAL 0.4 MG/DL (0.2-1.0); BLOOD UREA NITROGEN 48 MG/DL (7-18); CALCIUM LEVEL 8.3 MG/DL (8.8-10.2); CARBON DIOXIDE LEVEL 21 MEQ/L (21-32); CHLORIDE LEVEL 98 MEQ/L (98-107); CK-MB VALUE MASS 1.3 NG/ML (<3.6); CPK CREATINE PHOSPHOKINASE 813 U/L (39-308); CREATININE FOR GFR 4.66 MG/DL (0.70-1.30); FERRITIN 593 NG/ML (26-388); GLOMERULAR FILTRATION RATE 13.7 (>49); GLUCOSE, FASTING 123 MG/DL (70-100); LDH LACTATE DEHYDROGENASE 421 U/L (87-241); MAGNESIUM LEVEL 2.2 MG/DL (1.8-2.4); MB/CK RELATIVE INDEX 0.16 (< OR =4); SODIUM LEVEL 134 MEQ/L (136-145); TOTAL PROTEIN 7.3 GM/DL (6.4-8.2); TROPONIN I < 0.02 NG/ML (< 0.10)
[2021-07-06] MEDS ORDERED: NS 1,000 ML IV ONE (12:50)
[2021-07-06] MEDS ORDERED: LEVO75TA4 PO (14:04)
[2021-07-06] MEDS ORDERED: FLUT1INH3 INH (14:04)
--- NOTE | 2021-07-06 15:12 | REP ---
INDICATION: covid syncope COMPARISON: 07/03/2021 TECHNIQUE: Portable AP view of the chest FINDINGS: Bilateral opacities again noted and consistent with COVID 19 pulmonary disease. No significant change from prior examination. IMPRESSION: Stable bilateral opacities consistent with COVID-19 pulmonary disease. <Electronically signed by Ran Trevizo > 07/06/21 [id number]
[2021-07-06] MEDS ORDERED: ACETAMINOPHEN TAB 650MG DOSE (2X325MG) PO PRN (15:15)
[2021-07-06] MEDS ORDERED: BENZ-18 PO (16:40)
[2021-07-06] MEDS ORDERED: ASPI81TA26 PO (16:40)
[2021-07-06] MEDS ORDERED: ZOCO80TA PO (16:40)
[2021-07-06] MEDS ORDERED: LISI20TA33 PO (16:40)
[2021-07-06] MEDS ORDERED: HOME MED LIST COMPLETE! XX SCH (16:45)
--- NOTE | 2021-07-06 16:47 | HPEPDOC ---
[facility] Medical History & Physical Date of Admission Jul 06, 2021 Date of Service: Jul 06, 2021 Attending Physician: TREY KEYS MD History and Physical CHIEF COMPLAINT: Syncopal episode HISTORY OF PRESENT ILLNESS: Horacio is a 60-year-old male who presented to the ED after experiencing a syncopal episode in the chair awaiting his monoclonal antibody infusion. He was tested positive for Covid at [facility] ED on 07/03/2021 after 7 day history of shortness of breath, diarrhea, chest tightness, lightheadedness, and dizziness. He was told to come back today for monoclonal antibody infusion. His symptoms continued into today. He claims that he became lightheaded when sitting down in the chair for monoclonal antibody infusion after the nurse missed with the needle. He does not believe he fully lost consciousness and after the event he states that he is less dizzy, no longer short of breath, and the skin is becoming normal tone. He does admit to taking multiple doses of Tylenol and ibuprofen prior to coming to the ED July 03. He states in the 7 days prior to coming he was taking Tylenol 1000 mg every 4 hours, and 200 mg ibuprofen every 4 hours on Tuesday and Tuesday only. He also states that he continued his lisinopril and Lasix dose as directed. He states that he does not believe he drank less fluids over the period of symptoms but said he drank more orange juice than normal. PAST MEDICAL HISTORY: 1. Asthma. 2. Chronic coronary artery disease status post PCI to RCA. 3. DLP. 4. Hypothyroidism 5. Prediabetes 6. Essential hypertension 7. Unspecified CKD (has one working kidney) 8. Hodge 9. Class III obesity 10. L4/L5 discectomy 11. Tonsillectomy with adenoidectomy PAST SURGICAL HISTORY: 1. Tonsillectomy with adenoidectomy. SOCIAL HISTORY:. Tobacco use: Former smoker; began at age 16 and smoked about 2 packs a day till 33 years of age ETOH: Denies Illicit drug use: Denies Marijuana use: Denies IV drug use: Denies FAMILY HISTORY: Father: Alive, 85 years old, lung cancer Mother: at at 52 due to [place]; history of CKD and asthma Siblings: Has a sister who May of this year from colon cancer, she was 62 ALLERGIES: Please see below. REVIEW OF SYSTEMS: CONSTITUTIONAL: Reports fever, chills over the week. CARDIOVASCULAR: Reports chest tightness (resolved) and periods of tachycardia. RESPIRATORY: Reports coughing; denies shortness of breath status post syncopal episode. GASTROINTESTINAL: Reports diarrhea; denies nausea vomiting. GENITOURINARY: Denies dysuria, hematuria. HOME MEDICATIONS: Please see below. PHYSICAL EXAMINATION: VITAL SIGNS: Temperature 98.7, pulse 63, respiratory rate 20, blood pressure 113/57, pulse oximetry 93% on room air. GENERAL APPEARANCE: 60-year-old male, obese, lying in stretcher, in no acute distress. HEENT: Head normocephalic/atraumatic. CARDIOVASCULAR: Regular rate and rhythm. LUNGS: Wheezing heard in right lung, crackles and wheezing heard in left lung. ABDOMEN: Normoactive bowel sounds, nontender to palpation, no rebound tenderness or guarding. EXTREMITIES: 2+ radial and dorsalis pedis pulses LABORATORY DATA: See below. IMAGING: MICROBIOLOGY: Please see below. ASSESSMENT: Patient is a 60-year-old male who was admitted today after experiencing a syncopal episode prior to getting monoclonal antibody infusion. This prevented him from receiving the medication. He presented to the ED on July 03 after 7-day course of Covid symptoms. PLAN: #Syncopal episode -Admit for observation -Orthostatic vital signs #CHECO with history of CKD -Likely due to dehydration and poor oral intake prior to admission and taking ibuprofen Tuesday and Tuesday -Creatinine 4.66 on presentation to the ED today. -Was given for fluid boluses in the ED -Has been started on 100 mL/h normal saline -Avoid administration of nephrotoxic drugs #Covid pneumonia -Begin remdesivir -Dexamethasone 6 mg daily -HFA Advair -Continue home inhaler #Hypertension -Hold Lisinopril, Lasix and metoprolol, #Hyperlipidemia -Continue home simvastatin and fenofibrate #Hypothyroidism -Continue home Synthroid #GERD -Continue omeprazole #DVT prophylaxis -Lovenox 40 mg Vital Signs Vital Signs Date Time Temp Pulse Resp B/P (MAP) Pulse Ox O2 Delivery O2 Flow Rate FiO2 07/06/21 16:30 58 99/65 (76) 94 07/06/21 13:45 20 Room Air 07/06/21 10:21 98.7 Laboratory Data Labs 24H Laboratory Tests 2 07/06/21 10:15: Bedside Glucose (Misc Panel) 129H 07/06/21 10:27: Anion Gap 15, Glomerular Filtration Rate 13.7L, Calcium Level 8.3L, Magnesium Level 2.2, Ferritin 593H, Total Bilirubin 0.4, Aspartate Amino Transf (AST/SGOT) 47H, Alanine Aminotransferase (ALT/SGPT) 27, Alkaline Phosphatase 40L, Lactate Dehydrogenase 421H, Total Creatine Kinase 813H, Creatine Kinase MB 1.3, Creatine Kinase MB Relative Index 0.16, Troponin I < 0.02, C-Reactive Protein, Quantita tive 25.80H, Total Protein 7.3, Albumin 2.6L, Albumin/Globulin Ratio 0.6 07/06/21 10:28: Immature Granulocyte % (Auto) 1.1, Neutrophils (%) (Auto) 76.4H, Lymphocytes (%) (Auto) 14.0L, Monocytes (%) (Auto) 8.0, Eosinophils (%) (Auto) 0.1, Basophils (%) (Auto) 0.4, Neutrophils # (Auto) 5.4, Lymphocytes # (Auto) 1.0L, Monocytes # (Auto) 0.6, Eosinophils # (Auto) 0.0, Basophils # (Auto) 0.0, Nucleated Red Blood Cells % (auto) 0.0, Prothrombin Time 14.6H, Prothromb Time International Ratio 1.10, Activated Partial Thromboplast Time 37.7, Fibrinogen 731H, D-Dimer, Quantitative 655.59H, Lactic Acid Level 1.8, Procalcitonin 1.52 07/06/21 11:11: Blood Gas Bicarbonate Standard 20.5L, Arterial Blood pH 7.355, Arterial Blood Partial Pressure CO2 36.6, Arterial Blood Partial Pressure O2 111.6H, Arterial Blood Total CO2 21.1L, Arterial Blood HCO3 20.0L, Arterial Blood Base Excess - 4.9L, Arterial Blood Oxygen Saturation 98.0 CBC/BMP Laboratory Tests 07/06/21 10:27 07/06/21 10:28 Microbiology Microbiology 07/06/21 Blood Culture, Received Pending 07/06/21 Blood Culture, Received Pending Home Medications Scheduled Aspirin (Aspirin EC) 81 Mg Tablet.dr, 81 MG PO DAILY Cyanocobalamin (Vitamin B-12) (B-12) 1,000 Mcg Tablet, 1,000 MCG PO DAILY Fenofibrate (Fenofibrate) 160 Mg Tab, 160 MG PO QPM Fluticasone Propion/Salmeterol (Fluticasone-Salmeterol 232-14) 1 Each Aer.pow.ba, 2 PUFF INH BID Furosemide (Lasix) 40 Mg Tab, 40 MG PO DAILY Levothyroxine Sodium (Levothyroxine Sodium) 75 Mcg Tablet, 75 MCG PO DAILY Lisinopril (Lisinopril) 20 Mg Tablet, 10 MG PO BID Metoprolol Tartrate (Metoprolol Tartrate) 50 Mg Tab, 50 MG PO BID Omeprazole (Omeprazole) 40 Mg Capsule.dr, 40 MG PO DAILY Simvastatin (Zocor) 80 Mg Tablet, 80 MG PO QHS Scheduled PRN Albuterol Sulfate (Proair Hfa) 108 Mcg/Act Aer, 108 MCG INH Q6H PRN for SOB/W HEEZING Benzonatate (Benzonatate) 100 Mg Capsule, 100 MG PO TID PRN for COUGH Fluticasone Propionate (Fluticasone Propionate) 16 Gm [place].susp, 1 SPRAY NARES DAILY PRN for CONGESTION Allergies Coded Allergies: clarithromycin (Verified Allergy, Intermediate, bumps on arms, 02/03/20) A-FIB/CHADSVASC A-FIB History Current/History of A-Fib/PAF?: No GME ATTESTATION GME ATTESTATION My faculty preceptor for this patient encounter was physically present during the encounter and was fully available. All aspects of the patient interview, ex amination, medical decision making process, and medical care plan development were reviewed and approved by the faculty preceptor. The faculty preceptor is aware and concurs with the plan as stated in the body of this note and will attest to such by his/her cosignature. Mykel Altamirano DO Jul 06, 2021 16:47
[2021-07-06 17:21] VITALS: BP 128/70
[2021-07-06] MEDS: NS 1,000 ML IV SCH (17:35)
[2021-07-06] MEDS: ALBUTEROL 90 MCG/ACT 8GM HFA INHALER INH SCH ×2 (17:35→20:43)
[2021-07-06] MEDS: dexameTHASONE 4 MG/ML 1ML VIAL (J1100 PER 1MG) IV SCH (17:35)
[2021-07-06 17:41] VITALS: O2SAT 94
[2021-07-06] MEDS: ZINC SULFATE 220 MG CAP PO SCH (17:50)
[2021-07-06] MEDS: ASCORBIC ACID 500 MG TAB PO SCH (17:50)
[2021-07-06] MEDS ORDERED: REMDESIVIR 200 MG in NS 250 ML IV ONE (18:00)
--- NOTE | 2021-07-06 19:21 | ECGEPIP ---
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
[2021-07-06 20:00] VITALS: BP 128/65
[2021-07-06] MEDS ORDERED: SODIUM CHLORIDE 0.9% INJ 10 ML SYR IV ONE (20:00)
[2021-07-06] MEDS ORDERED: SIMVASTATIN 40 MG TAB PO SCH (21:00)
[2021-07-06 22:05] VITALS: BP_SYST 115; BP_SYST 134; BP_SYST 150; BP_DIAS 57; BP_DIAS 70; BP_DIAS 75
[2021-07-07] VITALS: BP 97/52
[2021-07-07] MEDS ORDERED: FLUTICASONE PROP 0.05% NASAL SPRAY 16 GM (FLONASE) NARES PRN (01:20)
[2021-07-07 04:00] VITALS: BP_SYST 122; BP_SYST 130; BP_SYST 143; BP_DIAS 58; BP_DIAS 69; BP_DIAS 76
[2021-07-07] MEDS ORDERED: LEVOTHYROXINE 75MCG TABLET (0.075MG) PO SCH (06:00)
[2021-07-07 06:58] VITALS: O2SAT 94
[2021-07-07] MEDS ORDERED: ADVAIR HFA 230/21MCG INHALER INH SCH (08:00)
[2021-07-07 08:09] LABS: BASO % 0.3 % (0.0-1.0); HEMATOCRIT 37.3 % (42.0-52.0); HEMOGLOBIN 12.4 g/dl (13.5-17.5); LYMPH # 0.4 10^3/uL (1.5-5.0); LYMPH % 11.5 % (24.0-44.0); MEAN CORPUSCULAR HEMOGLOBIN 29.7 pg (27.0-33.0); MEAN CORPUSCULAR HGB CONC 33.2 g/dl (32.0-36.5); MEAN CORPUSCULAR VOLUME 89.2 fl (80.0-96.0); MONO # 0.2 10^3/uL (0.0-0.8); MONO % 7.1 % (2.0-8.0); NEUTROPHILS # 2.7 10^3/uL (1.5-8.5); PLATELET COUNT, AUTOMATED 292 10^3/uL (150-450); RED BLOOD COUNT 4.18 10^6/uL (4.30-6.10); WHITE BLOOD COUNT 3.4 10^3/uL (4.0-10.0)
[2021-07-07] MEDS: NS 1,000 ML IV SCH ×2 (08:26→08:27)
[2021-07-07] MEDS: dexameTHASONE 4 MG/ML 1ML VIAL (J1100 PER 1MG) IV SCH (08:37)
[2021-07-07 08:38] LABS: ALBUMIN 2.3 GM/DL (3.2-5.2); BILIRUBIN,DIRECT 0.2 MG/DL (0.0-0.2); BILIRUBIN,TOTAL 0.3 MG/DL (0.2-1.0); CALCIUM LEVEL 8.4 MG/DL (8.8-10.2); CREATININE FOR GFR 2.09 MG/DL (0.70-1.30); GLOMERULAR FILTRATION RATE 34.7 (>49); MAGNESIUM LEVEL 2.1 MG/DL (1.8-2.4); POTASSIUM SERUM 4.2 MEQ/L (3.5-5.1); TOTAL PROTEIN 7.3 GM/DL (6.4-8.2)
[2021-07-07] MEDS: ZINC SULFATE 220 MG CAP PO SCH (08:38)
[2021-07-07] MEDS: ASCORBIC ACID 500 MG TAB PO SCH (08:38)
[2021-07-07] MEDS ORDERED: ASPIRIN 81MG ENTERIC TABLET PO SCH (09:00)
[2021-07-07] MEDS ORDERED: FLUBLOK(EGG FREE)(QUAD)INFLUENZA VACC 0.5ML SYRINGE 18YRS & OLDER IM ONE (09:00)
[2021-07-07] MEDS ORDERED: CYANOCOBALAMIN 500 MCG TAB PO SCH (09:00)
[2021-07-07] MEDS ORDERED: BUDESONIDE 180MCG INHALER (PULMICORT FLEXHALER) INH SCH (09:00)
[2021-07-07] MEDS ORDERED: OMEPRAZOLE 20 MG CAP PO SCH (09:00)
[2021-07-07] MEDS ORDERED: ENOXAPARIN 30MG/0.3ML SYRINGE (J1650 PER 10MG) SC SCH (09:00)
[2021-07-07] MEDS ORDERED: METO1TAB32 PO (11:15)
--- NOTE | 2021-07-07 11:25 | DS.PDOC ---
Discharge Summary General Date of Admission Jul 06, 2021 at 10:08 Date of Discharge Jul 07, 2021 Attending Physician: TREY KEYS MD Discharge Summary PROCEDURES PERFORMED DURING STAY: None. ADMITTING DIAGNOSES: 1. Syncopal episode 2. CHECO with history of CKD 3. Covid pneumonia 4. Hypertension 5. Hyperlipidemia 6. Hypothyroidism 7. GERD DISCHARGE DIAGNOSES: 1. Syncopal episode 2. CHECO with history of CKD 3. Covid pneumonia 4. Hypertension 5. Hyperlipidemia 6. Hypothyroidism 7. GERD COMPLICATIONS/CHIEF COMPLAINT: Covid-19, Syncope. HISTORY OF PRESENT ILLNESS: Patient presented to [facility] on 07/06/2021 to receive monoclonal antibody infusion after being diagnosed with COVID-19 pneumonia here at the [facility] ED on 07/03/2021 after experiencing 7 days worth of shortness of breath, diarrhea, chest tightness, lightheadedness, and dizziness. After he sat down in the infusion chair he describes becoming lightheaded and also passing out after the needle was first inserted. He was then brought to the ED for observation and management. Hospital team was consulted and patient was admitted for further evaluation of the syncopal episode.. HOSPITAL COURSE: 07/06/2021: Patient explains that the 7 days prior to presenting to the ED on 07/03/2021, he was experiencing shortness of breath, diarrhea, chest tightness, lightheadedness, and dizziness. During interview in the ED he reported resolution of lightheadedness and dizziness, no longer being short of breath. He did report however that in the days leading up to his initial ED visit he was taking 1000 mg Tylenol every 4 hours, and 200 mg ibuprofen every 4 hours on Tuesday and Tuesday. He reported taking his blood pressure medication and Lasix as directed. 07/07/2021: Patient was evaluated in the fourth floor Covid unit. He was seen sitting in bed on 2 L nasal cannula. He appeared in no acute distress. He reported feeling like a new man compared to yesterday. He reported resolution of shortness of breath and no longer being lightheaded or dizzy. He denied fevers, chills, chest pain, tachycardia, shortness of breath, nausea, vomiting, diarrhea, dizziness, lightheadedness; but did report a cough. His creatinine has trended down toward his baseline value and has been determined to be safe for discharge. Follow-up instructions have been given to patient. DISCHARGE MEDICATIONS: Please see below. ALLERGIES: Please see below. PHYSICAL EXAMINATION ON DISCHARGE: VITAL SIGNS: Please see below. GENERAL: 60-year-old, male, obese, lying in bed, with a cannula placed on 2 L HEENT: Head normocephalic/atraumatic CARDIOVASCULAR EXAMINATION: Regular rate and rhythm, possible blowing murmur heard over the aortic auscultation post (stethoscope of poor quality however), patient believes he remembers being told he has a murmur in the past by other providers RESPIRATORY EXAMINATION: Clear to auscultation bilaterally ABDOMINAL EXAMINATION: Normoactive bowel sounds throughout, nontender to palpation, no rebound or guarding EXTREMITIES: 2+ radial pulses and 2+ dorsalis pedis pulses NEUROLOGICAL EXAMINATION: No gross deficits appreciated LABORATORY DATA: Please see below. IMAGING: Chest x-ray 07/06/2021: Stable bilateral opacities consistent with COVID-19 pulmonary disease PROGNOSIS: Good ACTIVITY: As tolerated. DIET: Low-sodium diet DISPOSITION: Home DISCHARGE INSTRUCTIONS AND ITEMS TO FOLLOW-UP ON OUTPATIENT: Begin metoprolol succinate 25 mg twice daily. Do not take lisinopril and Lasix for the next 4 days. Follow-up with PCP in the next 3 days for lab work (specifically a BMP). Discuss with PCP whether you are up-to-date on current vaccinations, such as flu, pneumonia 23 and 13, and Shingrix. Do not take any naproxen or Motrin, or any other nephrotoxic medication. Ensure adequate oral intake of fluids and electrolytes. If symptoms return and/or worsen please return to the ED for further evaluation and management. DISCHARGE CONDITION: [Stable]. TIME SPENT ON DISCHARGE: 30 minutes. Vital Signs/I&Os Vital Signs Date Time Temp Pulse Resp B/P (MAP) Pulse Ox O2 Delivery O2 Flow Rate FiO2 07/07/21 06:58 94 Nasal Cannula 2.0 07/07/21 04:00 98.8 69 18 122/58 (79) I&O- Last 24 Hours up to 6 AM 07/07/21 06:00 Intake Total 2000 ml Balance 2000 ml Laboratory Data Labs 24H Laboratory Tests 2 07/07/21 07:26: Immature Granulocyte % (Auto) 2.1, Neutrophils (%) (Auto) 79.0H, Lymphocytes (%) (Auto) 11.5L, Monocytes (%) (Auto) 7.1, Eosinophils (%) (Auto) 0.0, Basophils ( %) (Auto) 0.3, Neutrophils # (Auto) 2.7, Lymphocytes # (Auto) 0.4L, Monocytes # (Auto) 0.2, Eosinophils # (Auto) 0.0, Basophils # (Auto) 0.0, Nucleated Red Blood Cells % (auto) 0.0, Anion Gap 7L, Glomerular Filtration Rate 34.7L, Calcium Level 8.4L, Magnesium Level 2.1, Total Bilirubin 0.3, Direct Bilirubin 0.2, Aspartate Amino Transf (AST/SGOT) 36, Alanine Aminotransferase (ALT/SGPT) 27, Alkaline Phosphatase 43L, Total Protein 7.3, Albumin 2.3L, Albumin/Globulin Ratio 0.5 CBC/BMP Laboratory Tests 07/07/21 07:26 Microbiology Microbiology 07/06/21 Blood Culture - Preliminary, Resulted No growth after 24 hours . All specim... 07/06/21 Blood Culture - Preliminary, Resulted No growth after 24 hours . All specim... Discharge Medications Scheduled Aspirin (Aspirin EC) 81 Mg Tablet.dr, 81 MG PO DAILY, (Reported) Cyanocobalamin (Vitamin B-12) (B-12) 1,000 Mcg Tablet, 1,000 MCG PO DAILY, (Reported) Fenofibrate (Fenofibrate) 160 Mg Tab, 160 MG PO QPM, (Reported) Fluticasone Propion/Salmeterol (Fluticasone-Salmeterol 232-14) 1 Each Aer.pow.ba, 2 PUFF INH BID, (Reported) Furosemide (Lasix) 40 Mg Tab, 40 MG PO DAILY, (Reported) Levothyroxine Sodium (Levothyroxine Sodium) 75 Mcg Tablet, 75 MCG PO DAILY, (Reported) Lisinopril (Lisinopril) 20 Mg Tablet, 10 MG PO BID, (Reported) Metoprolol Succinate (Metoprolol Succinate) 25 Mg Tab.er.24h, 25 MG PO BID Omeprazole (Omeprazole) 40 Mg Capsule.dr, 40 MG PO DAILY, (Reported) Simvastatin (Zocor) 80 Mg Tablet, 80 MG PO QHS, (Reported) Scheduled PRN Albuterol Sulfate (Proair Hfa) 108 Mcg/Act Aer, 108 MCG INH Q6H PRN for SOB/WHEEZING, (Reported) Benzonatate (Benzonatate) 100 Mg Capsule, 100 MG PO TID PRN for COUGH, (Reported) Fluticasone Propionate (Fluticasone Propionate) 16 Gm [place].susp, 1 SPRAY NARES DAILY PRN for CONGESTION, (Reported) Allergies Coded Allergies: clarithromycin (Verified Allergy, Intermediate, bumps on arms, 02/03/20) GME ATTESTATION GME ATTESTATION My faculty preceptor for this patient encounter was physically present during the encounter and was fully available. All aspects of the patient interview, examination, medical decision making process, and medical care plan development were reviewed and approved by the faculty preceptor. The faculty preceptor is aware and concurs with the plan as stated in the body of this note and will attest to such by his/her cosignature. Mykel Altamirano DO Jul 07, 2021 11:25
[2021-07-07] MEDS ORDERED: REMDESIVIR 100 MG in NS 250 ML IV SCH (18:00)
[2021-07-07] MEDS ORDERED: SODIUM CHLORIDE 0.9% INJ 10 ML SYR IV SCH (19:00)
[2021-07-07] MEDS ORDERED: FENOFIBRATE 145MG TABLET (TRICOR) PO SCH (21:00)
== END 2021-07-07 14:30 | disposition home or self-care (01) ==
LOC: M ED 10:07 → M ED INP 10:08 → M 4MAIN 17:07
PROVIDERS: ADMIT Internal Medicine; ATTEND Internal Medicine
DX: U07.1 COVID-19 (principal); J12.82 Pneumonia due to coronavirus disease 2019; N17.9 Acute kidney failure, unspecified; N18.9 Chronic kidney disease, unspecified; I10 Essential (primary) hypertension; E78.5 Hyperlipidemia, unspecified; E03.9 Hypothyroidism, unspecified; K21.9 Gastro-esophageal reflux disease without esophagitis; Z79.82 Long term (current) use of aspirin; Z79.899 Other long term (current) drug therapy; Z88.1 Allergy status to other antibiotic agents
CPT/HCPCS: 36415; 36600; 71045; 80048; 80053; 80076; 82550; 82553; 82728; 82803; 83605; 83615; 83735; 84145; 85025; 85379; 85384; 85610; 85730; 86140; 87040; 93005; 94640; 96365; 96366; 96372; 96375; 96376; 99285; J1100; J1650

== ENCOUNTER 2021-07-09 16:29 | Emergency (ER) | payer BC ==
[~2021-07-09] VITALS: Ht 172.7 cm; Wt 138.0 kg
[~2021-07-09 16:29] MED LIST changes: +ASPI81TA26 PO; +BENZ-18 PO; +FLUT1INH3 INH; +LEVO75TA4 PO; +LISI20TA33 PO; +METO1TAB32 PO; +ZOCO80TA PO
--- OUTSIDE RECORDS SUMMARY | 2021-07-09 16:44 | CCD | Clinical Summary ---
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 pt also reports left ear pain and itchy eyes x's 3 days. per note states pt is anxious but pt does report this is normal for him [id number] Problems Includes: Problems addressed during this encounter and other active Problems Current Visit Onset Date - Time Resolved Date - Time Provider C ondition Status Hypertension (Systemic) 06/26/2021:49AM Lilly hebert MD Active Coronary Artery Disease 10/14/2020:46AM Rufino vidal MD Active Note: [place] prior to 1989 Past Visits Onset Date - Time Resolved Date - Time Provider Co ndition Status Chronic Kidney Disease (Nkf Classification) 11/05/2020:49AM Lana L Ray DO Active Note: creatine 1.76 on labs from ; has only one kidney he states, use to see nephrology, but not currently seeing them now Herniated Intervertebral Disc Lumbar 11/05/2020 - :40AM Lana L Ray DO Active Note: s/p surgery L4/5 in 13 01 or 2004 Obesity 11/05/2020:56AM Lana L Ray DO Acti ve Prediabetes 10/14/2020:47AM Rufino Wilcox MD A ctive Asthma 10/14/2020:47AM Rufino Wilcox MD A ctive Chronic Obstructive Pulmonary Disease 10/14/2020:46AM Rufino Wilcox MD Active Note: Quit smoking in his 30 s. Gerd 10/14/2020 - 9:09AM Rufino Wilcox MD A ctive Hypothyroidism 10/14/2020 - 9:09AM Rufino Wilcox MD Active Hyperlipidemia 10/14/2020 - 9:08AM Rufino Wilcox MD Active Vitamin D Deficiency 10/14/2020 - 9:10AM Rufino esqueda MD Active Plan of Treatment Referrals To Diagnosis ENT Devon Lancaster DO Epistaxis Note: Please schedule patient with provi bernardino Cardiology Devon Lancaster DO Athscl heart dise ase of [place] coronary artery w/o ang pctrs Note: Please schedule patient with provi bernardino Future Appointments Date Time Location Provider Chronic Disease Follow-up 08/27/2021 9:00AM [facility] Rufino Wilcox MD [facility] 10/19/2021 8:00AM [facility] Rufino vicente MD Future Tests Order Diagnosis Results Due Ordering Provid er Visit Summary - Standard Visit Visit Summary Standard Visit Ep istaxis 06/26/21 Lilly Maddox MD - Return to the clinic if condition worsens or new symptoms arise Total time spent reviewing patient chart, encounter with patient and documentation: 40 mins A portion of this document was dictated using [employer] software. A reasonable attempt was made to proofread for typos and errors. Please call with questions. Assessments Includes: Assessments from this encounter - Epistaxis - Coronary artery disease - Hypertension Patient has been experiencing epistaxis in the mornings during the year however over the last few days he has been having worsening epistaxis which started improving since 2 days ago. Patient has a h/o CAD and prescribed aspirin 325 mg daily. No h/o blood clots or strokes. Patient is agreeable to changing his ASA to 81 mg daily starting tomorrow. He has a deviated septum and has lost contact with the ENT he saw who recommended surgical correction and he would like a new referral to ENT which I placed today. He has not seen cardiology and has lost the contact info of the group he was referred to by his PCP, new referral for cardiology placed today. Instructed patient to call with any questions and concerns, or if his epistaxis worsens or fails to continue to improve. Counseled to bend head forward while pinching nose and apply ice instead of head backwards if epistaxis recurs. Patient verbalized understanding and in agreement with plan. Instructions Includes: Instructions from this encounter Education and Decision Aids were provide d during visit for: Patient appeared to understand therapeut ic regimen Medical Equipment - Implanted Devices Includes: Current DevicesNo Medical Equipment Recorded Medications Includes: Medications discussed during this encounter and other current Medicati ons Discontinued / Stopped on this date on 05/07/2021 Simvastatin 80 MG Oral Tablet Provider: Diagnosis: Hyperlipidemia, unsp ecified Vitamin B 12 250 MCG Oral Lozenge Provid er: Diagnosis: Aspirin 325 MG Oral Tablet Provider: Diagnosis: New / Renewed during this visit Devon Lancaster DO on 06/26/2021 Aspirin 81 MG Oral Tablet Chewable Provi bernardino: Devon Lancaster DO 30 day supply: 30 tablet, 1 refills Diagnosis: Ath scl heart disease of [place] coronary artery w/o ang pctrs Take one a day. Pharmacy: [facility] - [id number], [address] - Current Medications (continue as prescribed) Simvastatin 80 MG Oral Tablet 05/07/2021 - 11/03/2021 Provid er: Rufino Wilcox MD Diagnosis: Hyperlipidemia, unsp ecified One tablet PO at HS Vitamin D (Ergocalciferol) 1.25 MG (24885 UT) Oral Capsule 0 04/29/2021 Provider: Rufino Wilcox MD Diagnosis: Vitamin D deficiency , unspecified Take one capsule every 2 weeks Levothyroxine Sodium 75 MCG Oral Tablet 04/29/2021 Provider: Rufino Wilcox MD Diagnosis: Hypothyroidism, unsp ecified once a day Metoprolol Tartrate 50 MG Oral Tablet 04/27/2021 Pr ovider: Rufino Wilcox MD Diagnosis: Athscl heart disease of [place] coronary artery w/o ang pctrs as directed Take 1 tab twice a day Vitamin B12 1000 MCG Oral Tablet Extended Release 04/10/2021 - 10/07/2021 Provider: Rufino Wilcox MD Diagnosis: once a day Lisinopril 20 MG Oral Tablet 02/02/2021 Provider: Rufino Wilcox MD Diagnosis: Essential (primary) hypertension Take 1/2 tablet twice a day Lasix 40 MG Oral Tablet 01/19/2021 Provider: Rufino Wilcox MD Diagnosis: Athscl heart disease of [place] coronary artery w/o ang pctrs Take 1 tablet by mouth once daily. Fenofibrate 160 MG Oral Tablet 01/12/2021 - 07/11/2021 Provi bernardino: Rufino Wilcox MD Diagnosis: as directed Take 1 tablet by mouth every bedtime. Omeprazole 40 MG Oral Capsule Delayed Release 11/20/2020 - 0 11/15/2021 Provider: Ney CLARK Diagnosis: Gastro-esophageal re flux disease without esophagitis once a day Take 1 capsule by mouth every morning Fluticasone-Salmeterol 232-14 MCG/ACT In halation Aerosol Powder Breath Activated 11/12/2020 Provider: Rufino Wilcox MD Diagnosis: Chronic obstructive pulmonary disease, unspecified as directed 1 inhalation orally twice a day Sildenafil Citrate 50 MG Oral Tablet 10/14/2020 Pro vider: Rufino Wilcox MD Diagnosis: Male erectile disord er Take 1 tablet 1 hour prior to intercourse as needed Medications Administered Includes: Administered Medications from this encounterNo Administered Medications Recorded Vital Signs Includes: Vital Signs from this encounter Vital Name 06/26/2021 10:42A 06/26/2021 10:02A Blood Pressure Sitting R 138/76 Blood Pressure Sitting L 152/82 BP Cuff Size Large Pulse Rate-Sitting (bpm) 62 Pulse Rhythm Regular Respiration Rate (breaths/min) 20 Temp-Temporal 98.4 Weight (lb) 307 Pain Level 0 Oxygen Saturation (%) 94 Flow Rate (l/min) (None (Room Air)) FiO2 (%) 21 Results Includes: Results discussed during this encounterNo Results Recorded For Specified Dates History of Present Illness Includes: History of Present Illness from this encounter Horacio Perdue Sr is a 60 year old male. - Allergy list reviewed - Medication reconciliation performed - Medication list reviewed and updated - Medication list reviewed - No systemic symptoms - Previously well - - Primary physician: Elmer Keenan Patient presents today to discuss his nose bleeds. He states that throughout the year he has mornings of nosebleeds. This is a chronic problem for him. On Tuesday he ran over a skunk with his truck and since then he has been having daily epistaxis. He is wondering if the smell of the skunk triggered his sinuses and nose bleed to be worst. He has been sneezing and feeling congested. He has been putting his head back and using ice to control the bleeding. He has been having bright red blood with occasional clots. He states his nosebleed was the worst 2 days ago however has since improved. Denies nose bleeding today.He has a known history of a deviated septum and has seen an ENT in the past who recommended surgery. At the time he was struggling with nosebleeds however was not taking his water pill so he attributed his symptoms to not taking a water pill. His blood pressure was not elevated at the time. Denies head trauma or injury. Denies falls. Patient has been measuring his blood pressure at home. SBP yesterday was 140 however 118 afte rtaking his evening metoprolol. A few days ago his SBP was in the 150s-160s however states he was feeling anxious at the time. Social History Description Last Updated No secondhand cigarette smoke exposure 06/26/2021 Smoking status 04/27/2021 : Former smoker 06/26/2021 Smoking status : Former smoker 06/26/2021 Procedures and Surgical History Includes: Procedures from this encounter Procedures Code Diagnosis Performing Provider Service Location Service Date Clinical summary provided to patient Medical History Includes: Medical History addressed during this encounter Description Last Updated History of binocular distance acuity (with current cor rection) 06/26/2021 Past medical history -Please see Problem List for Act ruel Chronic Problems 06/26/2021 Family History Includes: Family History addressed during this encounterNo Family History Recorded Review of Systems Includes: Review of Systems from this encounter Systemic: Not feeling poorly (malaise). No fever and no chills. Head: No headache and no sinus pain. Eyes: No itching of the eyes and no eye pain. Otolaryngeal: No earache, no nasal discharge, and no sore throat. Cardiovascular: No chest pain or discomfort and no palpitations. Pulmonary: No dyspnea, no cough, and no wheezing. Gastrointestinal: No nausea, no vomiting, no abdominal pain, and no melena. No diarrhea and no constipation. Genitourinary: No hematuria and no dysuria. Musculoskeletal: No muscle aches and no localized joint pain. Neurological: No dizziness, no motor disturbances, and no sensory disturbances. Skin: No pruritus and no rash. Mental Status Includes: Mental Status from this encounterNo Mental Status Recorded Functional Status Includes: Functional Status from this encounterNo Functional Status Recorded Physical Exam Includes: Physical Exam from this encounter Eyes: -the conjunctiva exhibited no abnormalities -the extraocular movements were normal -no discharge from the conjunctiva Ears, Nose, Throat: -external auditory meatus normal -tympanic membrane was normal -nasal discharge seen dried blood at left nare. No active bleeding -deviated nasal septum -no sinus tenderness -the oropharynx was normal -external auditory canal normal Lungs: -respiratory excursion normal and symmetric -normal breath sounds/voice sounds -no wheezing was heard -no rhonchi were heard -no rales/crackles were heard Head: -no evidence of a head injury -the head was not normocephalic Skin: -the skin general appearance was normal General Status: -in no acute distress -well developed -well nourished Cardiovascular System: -no pitting edema -heart rate and rhythm normal Vital Signs: -current vital signs reviewed Immunizations Includes: Immunizations addressed during this encounterNo Immunizations Recorded Allergies Includes: Active AllergiesNo Known Allergies Encounters Encounter Provider Location Date Check-In Time Check-Out Time D iagnosis Acute L3 Lilly Maddox MD [facility] 06/26/2021 9:51AM 11:49AM Epistaxis, Coronary Artery Disease, Hypertension (Systemic) Insurance Includes: Active Insurance Policies Plan Name Member ID Group # Subscriber Relationship Effective Da kirill 1 - [facility] [id number] Horacio Perdue Sr Self 01/25/2020 - Unknown Advance Directives Includes: Current Advance Directives Directive Pat Aware Third Republican Effective Date Reviewed Status packet given Pt Bill of Rights, Priv Prac, Ad Dir Yes 10/14/2020 Current and Verified Note: Pt declined AD packet Health Concerns Includes: Health Concerns for current assessmentsNo Active Health Concerns Recorded Goals Includes: Active Goals for current assessmentsNo Active Goals Recorded Interventions Includes: Interventions for current assessmentsNo Interventions Recorded Evaluations & Outcomes Includes: Evaluations & Outcomes for current assessmentsNo Outcomes Recorded
--- OUTSIDE RECORDS SUMMARY | 2021-07-09 16:44 | CCD | Clinical Summary ---
Author Author Comic Rocket Organization Formerly [facility] Address [address] [place] [address] Phone Care Team Providers Care Glazier Supervisor Name Role Phone Rufino Wilcox MD PP [phone] Rufino Wilcox MD Unavailable [phone] Reason for Referral Date Encounter Description Provider Reason for Referral 04/27/21 Rufino Wilcox MD Request Con sultation By Specialist Reason for Visit and Chief Complaint visit for: check-up - The Chief Complaint is: Patient ambulates to room for [facility] onic follow up; denies problems or concerns at this time. Edilia POPE spent 8 mi nutes signing in patient Problems Includes: Problems addressed during this encounter and other active Problems Current Visit Onset Date - Time Resolved Date - Time Provider C ondition Status Prediabetes 10/14/2020 - :47AM Rufino Wilcox MD A ctive Asthma 10/14/2020:47AM Rufino Wilcox MD A ctive Chronic Obstructive Pulmonary Disease 10/14/2020:46AM Rufino Wilcox MD Active Note: Quit smoking in his 30 s. Coronary Artery Disease 10/14/2020:46AM Rufino vidal MD Active Note: [place] prior to 1989 Gerd 10/14/2020 - 9:09AM Rufino Wilcox MD A ctive Hypothyroidism 10/14/2020 - :09AM Rufino Wiclox MD Active Hyperlipidemia 10/14/2020 - :08AM Rufino Wilcox MD Active Vitamin D Deficiency 10/14/2020 - 9:10AM Rufino esqueda MD Active Past Visits Onset Date - Time Resolved Date - Time Provider Co ndition Status Chronic Kidney Disease (Nkf Classification) 11/05/2020 - 11:49AM Lana L Ray DO Active Note: creatine 1.76 on labs from ; has only one kidney he states, use to see nephrology, but not currently seeing them now Herniated Intervertebral Disc Lumbar 11/05/2020 - 11:40AM Lana Fragoso DO Active Note: s/p surgery L4/5 in 20 04 or 2005 Obesity 11/05/2020 - 11:56AM Lana Fragoso DO Acti ve Plan of Treatment Pending Tests Order Diagnosis Results Due Ordering Provi bernardino Lab COMPREHENSIVE METABOLIC PANEL 05/27/21 Rufino Wilcox MD Lab GLYCOSYLATED HGBA1C 05/27/21 Rufino Wilcox MD Lab LIPID PANEL 05/27/21 Rufino harmon MD Lab TSH 05/27/21 Rufino harmon MD Lab Vitamin D,25-HYDROXY 05/27/21 Rufino Wilcox MD Future Appointments Date Time Location Provider [place] 10/19/2021 8:00AM [facility] Rufino vicente MD - Instructions for patient No medication changes. Still need to be seeing Cardiology, Pulmonary and Nephroloy. F/u 3 months - Return to the clinic if condition wors ens or new symptoms arise Assessments Includes: Assessments from this encounter - Coronary artery disease - Asthma - Chronic obstructive pulmonary disease - GERD - Hyperlipidemia - Vitamin D deficiency - Hypothyroidism - Prediabetes Instructions Includes: Instructions from this encounter Instructions to patient Instructions for patient ~No medication changes. ~Still need to be seeing Cardiology, Pulmonary and Nephroloy. ~ ~F/u 3 months ~ Medical Equipment - Implanted Devices Includes: Current DevicesNo Medical Equipment Recorded Medications Includes: Medications discussed during this encounter and other current Medicati ons Discontinued / Stopped on this date on 04/10/2021 Vitamin B12 1000 MCG Oral Tablet Extended Release Provider: Diagnosis: Vitamin D (Ergocalciferol) 1.25 MG (30382 UT) Oral Capsule Provider: Rufino Wilcox MD Diagnosis: Vitamin D deficiency , unspecified New / Renewed during this visit Rufino Wilcox MD on 04/27/2021 Vitamin D (Ergocalciferol) 1.25 MG (80649 UT) Oral Capsule Provider: Rufino Wilcox MD 30 day supply: 4 capsule, 5 refills Diagnosis: Vit goins D deficiency, unspecified once a week [phone] - [address], [address] - Metoprolol Tartrate 50 MG Oral Tablet Pr ovider: Rufino Wilcox MD 30 day supply: 60 tablet, 5 refills Diagnosis: Ath scl heart disease of [place] coronary artery w/o ang pctrs as directed Take 1 tab twice a day Pharmacy: [id number] [address] [address] [facility] [address] [facility], [address] - Current Medications (continue as prescribed) Vitamin B12 1000 MCG Oral Tablet Extended Release 04/10/2021 - 10/07/2021 Provider: Rufino Wilcox MD Diagnosis: once a day Lisinopril 20 MG Oral Tablet 02/02/2021 Provider: Rufino Wilcox MD Diagnosis: Essential (primary) hypertension Take 1/2 tablet twice a day Vitamin B 12 250 MCG Oral Lozenge 01/20/2021 Provid er: Diagnosis: 2 cap po q day Aspirin 325 MG Oral Tablet 01/20/2021 Provider: Diagnosis: Simvastatin 80 MG Oral Tablet 01/20/2021 Provider: Diagnosis: 1 PO q day Lasix 40 MG Oral Tablet 01/19/2021 Provider: uRfino Wilcox MD Diagnosis: Athscl heart disease of [place] coronary artery w/o ang pctrs Take 1 [...] In halation Aerosol Powder Breath Activated 11/12/2020 - 05/11/2021 Provider: Rufino Wilcox MD Diagnosis: Chronic obstructive pulmonary disease, unspecified as directed 1 inhalation orally twice a day Levothyroxine Sodium 50 MCG Oral Tablet 11/12/2020 - 022 Provider: Rufino Wilcox MD Diagnosis: once a day Take 1 tablet by mouth daily Sildenafil Citrate 50 MG Oral Tablet 10/14/2020 Pro vider: Rufino Wilcox MD Diagnosis: Male erectile disord er Take 1 tablet 1 hour prior to intercourse as needed Medications Administered Includes: Administered Medications from this encounterNo Administered Medications Recorded Vital Signs Includes: Vital Signs from this encounter Vital Name 04/27/2021 09:54A Blood Pressure Sitting R 134/88 BP Cuff Size Large Pulse Rate-Sitting (bpm) 71 Respiration Rate (breaths/min) 24 Temp-Tympanic (F) 96.9 Height (in) 69 Weight (lb) 318 Body Mass Index (kg/m2) 47.0 Body Surface Area (m2) 2.52 Pain Level 0 Oxygen Saturation (%) 96 Results Includes: Results discussed during this encounterNo Results Recorded For Specified Dates History of Present Illness Includes: History of Present Illness from this encounter Horacio Perdue Sr is a 60 year old male. - Allergy list reviewed - Medication reconciliation performed Horacio presents for f/u asthma/emphysema/Hypothyroidism/HTN/Hyperlipidemia/Remote hx of [place]. He is half [place] and half [place]. Notes he had a heart attack in the , but it was found after the fact, not exactly sure when the NV was. Has not seen cardiology in years but appt is coming up later this week. Not too sure if his appt this week is Cardiology or Nephrology. Pulmonary referral is waiting for him to turn in paperwork. Nephrology referral was scheduled with Dr. Lawrence for Jan [address] Lawrence's office called him to reschedule it to April. Had labwork done last week: Prescribed sildenafil in Sep 2020 but has not had opportunity to try it yet. Blood sugars have been 130s at home. Does admit to drinking more soda and potato chips lately. A1c is up a bit from 6.1% last time to 6.3% now. He had mentioned his sister had cancer, says she now, last week. He got his two Moderna COVID19 shots now. Lost 5 lbs since last visit - - No request for consultation by special ist no previous emergency room visit Social History Description Last Updated Smoking status 04/27/2021 : Former smoker 04/27/2021 No secondhand cigarette smoke exposure 01/20/2021 Procedures and Surgical History Includes: Procedures from this encounter Procedures Code Diagnosis Performing Provider Service Location Service Date Summary provided electronically in CCDA format & reasonable certainty of receipt Medical History Includes: Medical History addressed during this encounter Description Last Updated History of binocular distance acuity (with current cor rection) 2020 11/05/2020 Family History Includes: Family History addressed during this encounterNo Family History Recorded Review of Systems Includes: Review of Systems from this encounter Systemic: Not feeling poorly (malaise). No fever, no chills, no night sweats, and no recent weight change. Head: No headache, no facial pain, and no sinus pain. Neck: No neck pain and no neck stiffness. Eyes: No vision problems, no itching of the eyes, and no eye pain. No photophobia. Otolaryngeal: No hearing loss, no earache, no tinnitus, no nasal discharge, no epistaxis, no hoarseness, no sore throat, and no bleeding gums. No mouth sores. Cardiovascular: No chest pain or discomfort, no palpitations, and the heart rate was not fast. Pulmonary: No dyspnea, not during exertion, and not nocturnal; causing awakening from sleep. No cough, no hemoptysis, and no wheezing. Gastrointestinal: Normal appetite, no dysphagia, and no heartburn. No nausea, no vomiting, no abdominal pain, and no melena. No diarrhea and no constipation. Genitourinary: No hematuria, no increase in urinary frequency, and no nocturia. No dysuria. Endocrine: No polydipsia and no excessive sweating. Musculoskeletal: No muscle aches, no localized joint pain, and no localized joint stiffness. Neurological: No dizziness, no vertigo, no fainting, no motor disturbances, and no sensory disturbances. Psychological: No anxiety, no depression, and no sleep disturbances. Skin: No pruritus. No skin lesions and no rash. Mental Status Includes: Mental Status from this encounter Description Cognitive functioning was normal Thought processes were not impaired No anxiety The thought content revealed no impairme nt Functional Status Includes: Functional Status from this encounterNo Functional Status Recorded Physical Exam Includes: Physical Exam from this encounter Lungs: -normal breath sounds/voice sounds -no wheezing was heard -no rhonchi were heard -no rales/crackles were heard Cardiovascular System: -no murmurs were heard -pitting edema 1mm bilaterally -no nonpitting edema -heart rate and rhythm normal -no bradycardia present -no tachycardia present Abdomen: -the bowel sounds were normal -abdominal non-tender -no mass was palpated in the abdomen -the liver was not enlarged -the spleen was not enlarged Psychiatric Exam: -the grooming was normal -the affect was normal -the mood was euthymic -thought processes were not impaired -the thought content revealed no impairment Neurological System: -cognitive functioning was normal General Status: -in no acute distress -well developed -well nourished -no feelings of hopelessness -no loss of interest in activities Musculoskeletal System: -overall findings were normal Vital Signs: -current vital signs reviewed Immunizations Includes: Immunizations addressed during this encounterNo Immunizations Recorded Allergies Includes: Active AllergiesNo Known Allergies Encounters Encounter Provider Location Date Check-In Time Check-Out Time D iagnosis Chronic Disease Follow-up Rufino Wilcox MD [facility] 021 9:48AM 11:59PM Hypothyroidism, Asthma, Chronic Obstruct ruel Pulmonary Disease, Prediabetes, Coronary Artery Disease, Vitamin D Deficiency, Hyperlipidemia, Gerd Insurance Includes: Active Insurance Policies Plan Name Member ID Group # Subscriber Relationship Effective Da kirill 1 - [facility] [id number] Horacio Perdue Sr Self 01/25/2020 - Unknown Advance Directives Includes: Current Advance Directives Directive Pat Aware Third Democrat Effective Date Reviewed Status packet given Pt [...]
[2021-07-09] MEDS ORDERED: METOPROLOL TART 25 MG TABLET PO ONE (19:20)
--- NOTE | 2021-07-09 20:05 | REP ---
INDICATION: sob COMPARISON: 07/06/2021 TECHNIQUE: Portable AP view of the chest FINDINGS: Patchy bilateral predominantly peripheral and basilar opacities again noted and relatively similar to prior examination when allowing for variation in technique. No obvious effusion. No pneumothorax. Mediastinum and cardiac silhouette are within normal limits and stable. Skeletal structures are intact. IMPRESSION: Multifocal infiltrates essentially unchanged. <Electronically signed by Ran Trevizo > 07/09/212001
[2021-07-09 20:25] VITALS: BP 165/90; O2SAT 93
[2021-07-09 20:34] LABS: HEMATOCRIT 41.5 % (42.0-52.0); HEMOGLOBIN 13.7 g/dl (13.5-17.5); MEAN CORPUSCULAR HEMOGLOBIN 29.2 pg (27.0-33.0); MEAN CORPUSCULAR VOLUME 88.5 fl (80.0-96.0); PLATELET COUNT, AUTOMATED 470 10^3/uL (150-450); RED BLOOD COUNT 4.69 10^6/uL (4.30-6.10); WHITE BLOOD COUNT 8.6 10^3/uL (4.0-10.0)
[2021-07-09 21:07] LABS: ALBUMIN 2.6 GM/DL (3.2-5.2); ALT/SGPT 29 U/L (12-78); BILIRUBIN,TOTAL 0.9 MG/DL (0.2-1.0); BLOOD UREA NITROGEN 20 MG/DL (7-18); CALCIUM LEVEL 8.4 MG/DL (8.8-10.2); CARBON DIOXIDE LEVEL 28 MEQ/L (21-32); CHLORIDE LEVEL 104 MEQ/L (98-107); CREATININE FOR GFR 1.29 MG/DL (0.70-1.30); GLOMERULAR FILTRATION RATE > 60.0 (>49); GLUCOSE, FASTING 121 MG/DL (70-100); POTASSIUM SERUM 4.7 MEQ/L (3.5-5.1); SODIUM LEVEL 139 MEQ/L (136-145); TOTAL PROTEIN 7.3 GM/DL (6.4-8.2)
[2021-07-09] MEDS ORDERED: DEXA6TAB PO (21:16)
[2021-07-09 21:23] LABS: ATYPICAL LYMPH 1 % (0-5); LYMPHOCYTES 13 % (16-44); METAMYELOCYTES 1 % (0-0); MONOCYTES 8 % (0-5); NEUTROPHILS 68 % (28-66); PLATELET ESTIMATE NORMAL (NORMAL)
[2021-07-09 21:30] VITALS: BP 151/94
== END 2021-07-09 22:20 | disposition home or self-care (01) ==
LOC: M ED 16:29
DX: U07.1 COVID-19 (principal); J12.82 Pneumonia due to coronavirus disease 2019; R06.00 Dyspnea, unspecified; I10 Essential (primary) hypertension; E78.5 Hyperlipidemia, unspecified; J45.909 Unspecified asthma, uncomplicated; Z79.82 Long term (current) use of aspirin; Z79.899 Other long term (current) drug therapy; Z88.1 Allergy status to other antibiotic agents

== ENCOUNTER → 2021-08-05 | Outpatient (CLI) | payer BC ==
[~2021-08-05] MED LIST changes: +DEXA6TAB PO
[2021-08-05 13:26] LABS: BASO # 0.1 10^3/uL (0.0-0.2); BASO % 1.3 % (0.0-1.0); EOS # 0.3 10^3/uL (0.0-0.5); EOS % 5.4 % (0.0-3.0); HEMATOCRIT 45.1 % (42.0-52.0); HEMOGLOBIN 14.4 g/dl (13.5-17.5); LYMPH # 1.3 10^3/uL (1.5-5.0); LYMPH % 28.6 % (24.0-44.0); MEAN CORPUSCULAR HEMOGLOBIN 29.6 pg (27.0-33.0); MEAN CORPUSCULAR HGB CONC 31.9 g/dl (32.0-36.5); MEAN CORPUSCULAR VOLUME 92.6 fl (80.0-96.0); MONO # 0.5 10^3/uL (0.0-0.8); MONO % 10.4 % (2.0-8.0); NEUTROPHILS # 2.5 10^3/uL (1.5-8.5); NEUTROPHILS % 53.6 % (36.0-66.0); PLATELET COUNT, AUTOMATED 252 10^3/uL (150-450); RED BLOOD COUNT 4.87 10^6/uL (4.30-6.10); WHITE BLOOD COUNT 4.6 10^3/uL (4.0-10.0)
[2021-08-05 13:43] LABS: ALBUMIN 3.4 GM/DL (3.2-5.2); BILIRUBIN,TOTAL 0.4 MG/DL (0.2-1.0); C REACTIVE PROTEIN QUANTITATIV 0.82 MG/DL (0.00-0.30); CALCIUM LEVEL 9.6 MG/DL (8.8-10.2); CREATININE FOR GFR 1.35 MG/DL (0.70-1.30); GLOMERULAR FILTRATION RATE 57.4 (>49); MAGNESIUM LEVEL 2.1 MG/DL (1.8-2.4); POTASSIUM SERUM 4.4 MEQ/L (3.5-5.1); TOTAL PROTEIN 7.2 GM/DL (6.4-8.2); URIC ACID 7.9 MG/DL (3.5-7.2)
[2021-08-05 13:50] LABS: PTH INTACT 43.6 PG/ML (18.5-88.0)
[2021-08-05 14:41] LABS: HEMOGLOBIN A1c 6.6 %
== END ==
LOC: M PLALAB 11:49
PROVIDERS: ATTEND Family Medicine
DX: E78.5 Hyperlipidemia, unspecified (principal); I50.32 Chronic diastolic (congestive) heart failure; E53.8 Deficiency of other specified B group vitamins; R73.01 Impaired fasting glucose; N18.30 Chronic kidney disease, stage 3 unspecified

== ENCOUNTER → 2021-08-19 | Outpatient (CLI) | payer BC ==
--- NOTE | 2021-08-19 10:47 | REP ---
INDICATION: CKD STAGE 5, KNOWN LT ATROPHY COMPARISON: None TECHNIQUE: Real time bonilla scale ultrasound examination using curved array transducer followed by color Doppler evaluation of the renal vasculature. FINDINGS: Right kidney measures 14.8 x 6.9 x 7.4 cm without hydronephrosis, nephrolithiasis, cystic or renal mass lesion. Left kidney is not visualized. Color Doppler evaluation is severely limited due to body habitus as well as overlying bowel gas. The aorta and main renal arteries could not be properly evaluated.. RIGHT KIDNEY Intrarenal resistive indices: 0.65-0.70 Intrarenal acceleration times: 0.046-0.058 IMPRESSION: 1. No left kidney identified with normal compensatory enlargement to the right kidney. 2. Essentially nondiagnostic for evaluation of renal arterial stenosis due to body habitus and technical factors. If there is continued concern, CTA may be considered for further evaluation. <Electronically signed by Ran Trevizo > 08/19/21 [id number]
== END ==
LOC: M RAD 07:48
PROVIDERS: ATTEND Family Medicine
DX: N18.30 Chronic kidney disease, stage 3 unspecified (principal)

== ENCOUNTER → 2021-08-21 | Outpatient (CLI) | payer BC ==
[~2021-08-21] MED LIST changes: -OMEP-221 PO; +OMEP40CA5 PO
== END ==
LOC: M CARPUL 09:12
PROVIDERS: ATTEND Family Medicine
DX: I50.32 Chronic diastolic (congestive) heart failure (principal)

== ENCOUNTER → 2021-12-03 | Outpatient (CLI) | payer BC ==
[2021-12-03 17:30] LABS: ALBUMIN 3.6 GM/DL (3.2-5.2); BILIRUBIN,TOTAL 0.2 MG/DL (0.2-1.0); CALCIUM LEVEL 9.4 MG/DL (8.8-10.2); CHOLESTEROL RISK RATIO 5.696 (<5); CREATININE FOR GFR 1.72 MG/DL (0.70-1.30); FREE T4 1.01 NG/DL (0.76-1.46); GLOMERULAR FILTRATION RATE 43.3 (>49); POTASSIUM SERUM 5.5 MEQ/L (3.5-5.1); THYROID STIMULATING HORMONE 1.66 uIU/ML (0.358-3.740); TOTAL PROTEIN 7.7 GM/DL (6.4-8.2)
[2021-12-03 17:33] LABS: HEMOGLOBIN A1c 6.4 %; PTH INTACT 53.6 PG/ML (18.5-88.0); TOTAL 25(OH) VITAMIN D 34.4 NG/ML (30.0-100.0)
== END ==
LOC: M PLALAB 13:56
PROVIDERS: ATTEND Family Medicine
DX: R73.01 Impaired fasting glucose (principal); E55.9 Vitamin D deficiency, unspecified

== ENCOUNTER 2021-12-09 15:50 | Emergency (ER) | payer BC ==
[~2021-12-09] VITALS: Ht 170.2 cm; Wt 145.9 kg
[2021-12-09 20:09] LABS: BASO % 0.5 % (0.0-1.0); EOS # 0.1 10^3/uL (0.0-0.5); EOS % 1.1 % (0.0-3.0); HEMATOCRIT 47.4 % (42.0-52.0); HEMOGLOBIN 15.5 g/dl (13.5-17.5); LYMPH # 1.7 10^3/uL (1.5-5.0); LYMPH % 19.3 % (24.0-44.0); MEAN CORPUSCULAR HEMOGLOBIN 29.6 pg (27.0-33.0); MEAN CORPUSCULAR HGB CONC 32.7 g/dl (32.0-36.5); MEAN CORPUSCULAR VOLUME 90.5 fl (80.0-96.0); MONO # 0.7 10^3/uL (0.0-0.8); MONO % 8.1 % (2.0-8.0); NEUTROPHILS # 6.2 10^3/uL (1.5-8.5); NEUTROPHILS % 70.3 % (36.0-66.0); PLATELET COUNT, AUTOMATED 279 10^3/uL (150-450); RED BLOOD COUNT 5.24 10^6/uL (4.30-6.10); WHITE BLOOD COUNT 8.9 10^3/uL (4.0-10.0)
[2021-12-09 20:35] LABS: CK-MB VALUE MASS < 1.0 NG/ML (<3.6); CPK CREATINE PHOSPHOKINASE 133 U/L (39-308); MB/CK RELATIVE INDEX 0.75 (< OR =4)
[2021-12-09 20:47] LABS: ALBUMIN 3.5 GM/DL (3.2-5.2); ALT/SGPT 33 U/L (12-78); BILIRUBIN,DIRECT < 0.1 MG/DL (0.0-0.2); BILIRUBIN,TOTAL 0.4 MG/DL (0.2-1.0); NT-PRO BNP 165 PG/ML (<125); THYROXINE (T4) 10.3 UG/DL (4.5-12.0); TOTAL PROTEIN 7.7 GM/DL (6.4-8.2)
[2021-12-09] MEDS ORDERED: ASPE16CR TOP (20:48)
[2021-12-09 21:00] VITALS: BP 145/81
== END 2021-12-09 21:00 | disposition home or self-care (01) ==
LOC: M ED 15:50
DX: R07.89 Other chest pain (principal); M25.512 Pain in left shoulder; W10.9XXA Fall (on) (from) unspecified stairs and steps, initial encounter; Y92.89 Other specified places as the place of occurrence of the external cause; Y93.9 Activity, unspecified; Y99.0 Civilian activity done for income or pay; I50.9 Heart failure, unspecified; I25.2 Old myocardial infarction; I10 Essential (primary) hypertension; E11.9 Type 2 diabetes mellitus without complications; K21.9 Gastro-esophageal reflux disease without esophagitis; N18.9 Chronic kidney disease, unspecified; Z79.82 Long term (current) use of aspirin; Z79.899 Other long term (current) drug therapy; Z88.1 Allergy status to other antibiotic agents

== ENCOUNTER → 2022-05-13 | Outpatient (CLI) | payer BC ==
[~2022-05-13] MED LIST changes: +ASPE16CR TOP
[2022-05-13 16:34] LABS: ALBUMIN 3.9 GM/DL (3.2-5.2); BILIRUBIN,TOTAL 0.4 MG/DL (0.2-1.0); CALCIUM LEVEL 9.8 MG/DL (8.8-10.2); CHOLESTEROL RISK RATIO 4.656 (<5); CREATININE FOR GFR 1.64 MG/DL (0.70-1.30); FREE T4 1.08 NG/DL (0.76-1.46); GLOMERULAR FILTRATION RATE 45.7 (>49); THYROID STIMULATING HORMONE 1.35 uIU/ML (0.358-3.740); TOTAL PROTEIN 7.7 GM/DL (6.4-8.2)
[2022-05-13 16:37] LABS: CREATININE, URINE 61.1 MG/DL; MALB URINE SIEMENS 5.2 MG/L; MAU/CREAT RATIO 8.5 MCG/MG (0.0-30.0)
[2022-05-13 19:40] LABS: HEMOGLOBIN A1c 6.1 %
== END ==
LOC: M PLALAB 12:48
PROVIDERS: ATTEND Family Medicine
DX: I10 Essential (primary) hypertension (principal); R73.01 Impaired fasting glucose; E03.9 Hypothyroidism, unspecified; E78.5 Hyperlipidemia, unspecified

== ENCOUNTER 2022-06-29 18:41 | Emergency (ER) | payer BC ==
[~2022-06-29] VITALS: Ht 170.2 cm; Wt 130.0 kg
[2022-06-29 23:42] LABS: BASO % 0.4 % (0.0-1.0); EOS # 0.2 10^3/uL (0.0-0.5); EOS % 2.2 % (0.0-3.0); HEMATOCRIT 44.1 % (42.0-52.0); LYMPH # 1.8 10^3/uL (1.5-5.0); LYMPH % 23.2 % (24.0-44.0); MEAN CORPUSCULAR HEMOGLOBIN 29.3 pg (27.0-33.0); MEAN CORPUSCULAR HGB CONC 31.7 g/dl (32.0-36.5); MEAN CORPUSCULAR VOLUME 92.3 fl (80.0-96.0); MONO # 0.7 10^3/uL (0.0-0.8); MONO % 8.8 % (2.0-8.0); NEUTROPHILS # 5.1 10^3/uL (1.5-8.5); PLATELET COUNT, AUTOMATED 256 10^3/uL (150-450); RED BLOOD COUNT 4.78 10^6/uL (4.30-6.10); WHITE BLOOD COUNT 7.8 10^3/uL (4.0-10.0)
[2022-06-30 00:02] VITALS: BP 150/80
[2022-06-30 00:14] LABS: ERYTHROCYTE SEDIMENTATION RATE 48 mm/hr (0-20)
[2022-06-30 00:16] LABS: C REACTIVE PROTEIN QUANTITATIV 1.81 MG/DL (0.00-0.30); URIC ACID 8.5 MG/DL (3.5-7.2)
== END 2022-06-30 01:03 | disposition home or self-care (01) ==
LOC: M ED 18:41
DX: M10.9 Gout, unspecified (principal); I25.10 Atherosclerotic heart disease of native coronary artery without angina pectoris; I50.9 Heart failure, unspecified; I25.2 Old myocardial infarction; E11.9 Type 2 diabetes mellitus without complications; I10 Essential (primary) hypertension; E78.5 Hyperlipidemia, unspecified; K76.0 Fatty (change of) liver, not elsewhere classified; K21.9 Gastro-esophageal reflux disease without esophagitis; N18.9 Chronic kidney disease, unspecified; M48.061 Spinal stenosis, lumbar region without neurogenic claudication; M54.9 Dorsalgia, unspecified; Z87.01 Personal history of pneumonia (recurrent); Z87.891 Personal history of nicotine dependence; Z79.890 Hormone replacement therapy; Z79.899 Other long term (current) drug therapy; Z79.82 Long term (current) use of aspirin; Z88.1 Allergy status to other antibiotic agents

== ENCOUNTER → 2022-10-21 | Outpatient (CLI) | payer BC ==
[2022-10-21 11:28] LABS: HEMOGLOBIN A1c 5.7 % (4.0-6.0)
[2022-10-21 12:21] LABS: URIC ACID 7.1 MG/DL (3.7-9.2)
[2022-10-21 12:24] LABS: ALBUMIN 3.9 G/DL (3.2-5.2); BILIRUBIN,TOTAL 0.3 MG/DL (0.3-1.2); CALCIUM LEVEL 9.7 MG/DL (8.3-10.6); CREATININE FOR GFR 1.66 MG/DL (0.70-1.30); GLOMERULAR FILTRATION RATE 44.9 (>49); TOTAL PROTEIN 7.7 G/DL (5.7-8.2)
== END ==
LOC: M PLALAB 08:23
PROVIDERS: ATTEND Family Medicine
DX: R73.01 Impaired fasting glucose (principal); M10.9 Gout, unspecified; I50.32 Chronic diastolic (congestive) heart failure; Z12.5 Encounter for screening for malignant neoplasm of prostate

== ENCOUNTER → 2023-01-21 | Outpatient (REF) | payer BC ==
[~2023-01-21] MED LIST changes: -ASPE16CR TOP; +FLUT50SP17 NARES; -FLUTISP NARES; +LIDO76.52 TOP
== END ==
LOC: M SFHCPLAZ 17:49
PROVIDERS: ATTEND Family Medicine
DX: E03.9 Hypothyroidism, unspecified (principal); E55.9 Vitamin D deficiency, unspecified; E53.8 Deficiency of other specified B group vitamins; Z53.8 Procedure and treatment not carried out for other reasons

== ENCOUNTER 2023-04-11 08:08 | Emergency (ER) | payer OTHER, BC ==
[~2023-04-11] VITALS: Ht 170.2 cm; Wt 141.4 kg
[2023-04-11] MEDS ORDERED: ROSU20TA61 (08:35)
[2023-04-11] MEDS ORDERED: LISI10TA22 (08:35)
[2023-04-11] MEDS ORDERED: METO50TA7 (08:35)
[2023-04-11] MEDS ORDERED: ALLO100T (08:35)
[2023-04-11] MEDS ORDERED: LEVO50TA5 (08:35)
[2023-04-11] MEDS ORDERED: COLC0.6T47 (08:35)
[2023-04-11 11:07] VITALS: BP 147/77; TEMP 98.3; O2SAT 94
== END 2023-04-11 11:08 | disposition home or self-care (01) ==
LOC: M ED 08:08
DX: S93.401A Sprain of unspecified ligament of right ankle, initial encounter (principal); W01.0XXA Fall on same level from slipping, tripping and stumbling without subsequent striking against object, initial encounter; Y92.79 Other farm location as the place of occurrence of the external cause; I25.10 Atherosclerotic heart disease of native coronary artery without angina pectoris; I25.2 Old myocardial infarction; I10 Essential (primary) hypertension; M10.9 Gout, unspecified; E66.9 Obesity, unspecified; Z79.82 Long term (current) use of aspirin; Z79.899 Other long term (current) drug therapy; Z88.1 Allergy status to other antibiotic agents

== ENCOUNTER → 2023-09-16 | Outpatient (CLI) | payer BC ==
[~2023-09-16] MED LIST changes: +ALLO100T; +COLC0.6T47; -FLUT50SP17 NARES; +FLUTISP NARES; +LEVO50TA5; +LISI10TA22; +METO50TA7; +ROSU20TA61
[2023-09-16 17:40] LABS: URIC ACID 7.6 MG/DL (3.7-9.2)
[2023-09-16 17:44] LABS: ALBUMIN 3.8 G/DL (3.2-5.2); BILIRUBIN,TOTAL 0.3 MG/DL (0.3-1.2); CALCIUM LEVEL 9.4 MG/DL (8.3-10.6); CREATININE FOR GFR 1.46 MG/DL (0.70-1.30); FERRITIN 135.6 NG/ML (10.5-307.3); FREE T4 1.15 NG/DL (0.89-1.76); GLOMERULAR FILTRATION RATE 51.9 (>49); POTASSIUM SERUM 4.6 MMOL/L (3.5-5.1); PTH INTACT 51.5 PG/ML (18.5-88.0); THYROID STIMULATING HORMONE 3.376 uIU/ML (0.55-4.78); TOTAL PROTEIN 7.4 G/DL (5.7-8.2)
[2023-09-16 17:58] LABS: BASO % 0.5 % (0.0-1.0); EOS # 0.1 10^3/uL (0.0-0.5); EOS % 1.3 % (0.0-3.0); HEMATOCRIT 46.9 % (42.0-52.0); HEMOGLOBIN 15.1 g/dl (13.5-17.5); LYMPH # 1.3 10^3/uL (1.5-5.0); LYMPH % 16.1 % (24.0-44.0); MEAN CORPUSCULAR HEMOGLOBIN 29.8 pg (27.0-33.0); MEAN CORPUSCULAR HGB CONC 32.2 g/dl (32.0-36.5); MEAN CORPUSCULAR VOLUME 92.7 fl (80.0-96.0); MONO # 0.7 10^3/uL (0.0-0.8); MONO % 8.7 % (2.0-8.0); NEUTROPHILS % 72.8 % (36.0-66.0); PLATELET COUNT, AUTOMATED 251 10^3/uL (150-450); RED BLOOD COUNT 5.06 10^6/uL (4.30-6.10); WHITE BLOOD COUNT 8.3 10^3/uL (4.0-10.0)
== END ==
LOC: M PLALAB 13:04
PROVIDERS: ATTEND Family Medicine
DX: M10.9 Gout, unspecified (principal); I50.32 Chronic diastolic (congestive) heart failure; E03.9 Hypothyroidism, unspecified; E55.9 Vitamin D deficiency, unspecified; E53.8 Deficiency of other specified B group vitamins

== ENCOUNTER → 2023-10-17 | Outpatient (CLI) | payer BC | LOC: M ADAMS 14:37 | PROVIDERS: ATTEND Physician Assistant | DX: Z53.9 Procedure and treatment not carried out, unspecified reason (principal) ==

== ENCOUNTER → 2023-10-18 | Outpatient (CLI) | payer BC | LOC: M ADAMS 10:10 | PROVIDERS: ATTEND Physician Assistant | DX: J22 Unspecified acute lower respiratory infection (principal) ==

== ENCOUNTER → 2024-02-22 | Outpatient (CLI) | payer BC ==
[~2024-02-22] MED LIST changes: +ALBU8.5H INH; +ALLO300T2 PO; +ASPI81TAEC PO; +METF500T13 PO; +ROSU20TA61 PO; +VITA250T7 PO
[2024-02-22 15:18] LABS: CREATININE FOR GFR 1.5 MG/DL (0.70-1.30); GLOMERULAR FILTRATION RATE 50.3 (>49); POTASSIUM SERUM 4.4 MMOL/L (3.5-5.1)
== END ==
LOC: M PLALAB 11:17
PROVIDERS: ATTEND Family Medicine
DX: N17.9 Acute kidney failure, unspecified (principal)

== ENCOUNTER 2024-03-10 08:35 | Emergency (ER) | payer BC ==
[~2024-03-10 08:35] MED LIST changes: +ONDA-282 PO; -ONDA4TAB6 PO
[2024-03-10 09:12] LABS: HEMATOCRIT 45.2 % (42.0-52.0); HEMOGLOBIN 14.5 g/dl (13.5-17.5); MEAN CORPUSCULAR HEMOGLOBIN 29.7 pg (27.0-33.0); MEAN CORPUSCULAR HGB CONC 32.1 g/dl (32.0-36.5); MEAN CORPUSCULAR VOLUME 92.4 fl (80.0-96.0); PLATELET COUNT, AUTOMATED 227 10^3/uL (150-450); RED BLOOD COUNT 4.89 10^6/uL (4.30-6.10); WHITE BLOOD COUNT 5.9 10^3/uL (4.0-10.0)
[2024-03-10 09:16] LABS: INR 0.95; PARTIAL THROMBOPLASTIN TIME 27.5 SECONDS (24.8-34.2); PROTHROMBIN TIME 12.4 SECONDS (12.5-14.5)
[2024-03-10 09:31] LABS: CALCIUM LEVEL 9.6 MG/DL (8.3-10.6); CREATININE FOR GFR 1.29 MG/DL (0.70-1.30); GLOMERULAR FILTRATION RATE 59.9 (>49); POTASSIUM SERUM 3.9 MMOL/L (3.5-5.1)
[2024-03-10] MEDS: BACTRIM 160MG/800MG DS TAB PO ONE (11:23)
[2024-03-10] MEDS ORDERED: SULF1TAB23 PO (11:47)
[2024-03-10 12:01] VITALS: BP 135/88; TEMP 97.8; O2SAT 96
== END 2024-03-10 12:06 | disposition home or self-care (01) ==
LOC: M ED 08:35
DX: N30.01 Acute cystitis with hematuria (principal); I25.10 Atherosclerotic heart disease of native coronary artery without angina pectoris; E11.9 Type 2 diabetes mellitus without complications; N18.9 Chronic kidney disease, unspecified; E78.5 Hyperlipidemia, unspecified; Z87.442 Personal history of urinary calculi; Z79.82 Long term (current) use of aspirin; Z79.899 Other long term (current) drug therapy; Z88.1 Allergy status to other antibiotic agents

== ENCOUNTER 2024-04-09 17:14 | Emergency (ER) | payer BC ==
[~2024-04-09] VITALS: Ht 170.2 cm; Wt 133.0 kg
[~2024-04-09 17:14] MED LIST changes: +SULF1TAB23 PO
[2024-04-09 17:15] VITALS: BP 147/87; TEMP 98.2; O2SAT 95
== END 2024-04-09 20:48 | disposition home or self-care (01) ==
LOC: M ED 17:14
DX: T16.1XXA Foreign body in right ear, initial encounter (principal); I25.2 Old myocardial infarction; J45.909 Unspecified asthma, uncomplicated; J44.9 Chronic obstructive pulmonary disease, unspecified; E03.9 Hypothyroidism, unspecified; E11.9 Type 2 diabetes mellitus without complications; Z86.79 Personal history of other diseases of the circulatory system; Z88.1 Allergy status to other antibiotic agents; Z79.52 Long term (current) use of systemic steroids; Z79.82 Long term (current) use of aspirin; Z79.811 Long term (current) use of aromatase inhibitors; Z79.899 Other long term (current) drug therapy; Y92.009 Unspecified place in unspecified non-institutional (private) residence as the place of occurrence of the external cause; Y93.89 Activity, other specified; Y99.9 Unspecified external cause status

== ENCOUNTER → 2024-05-11 | Outpatient (CLI) | payer BC ==
[2024-05-11 14:49] LABS: APPEARANCE, URINE CLEAR (CLEAR); BACTERIA, URINE AUTO NEGATIVE (NEGATIVE); BILIRUBIN, URINE AUTO NEGATIVE (NEGATIVE); BLOOD, URINE BLOOD 3+ (NEGATIVE); COLOR, URINE YELLOW (YELLOW); GLUCOSE, URINE (UA) AUTO NEGATIVE (NEGATIVE); KETONE, URINE AUTO NEGATIVE (NEGATIVE); LEUKOCYTE ESTERASE, URINE AUTO NEGATIVE (NEGATIVE); MUCUS, URINE SMALL (NEGATIVE); NITRITE, URINE AUTO NEGATIVE (NEGATIVE); PROTEIN, URINE AUTO NEGATIVE (NEGATIVE); RBC, URINE AUTO TNTC /HPF (0-3); SQUAMOUS EPITHELIAL CELL UR AU 0 /HPF (0-6); UROBILINOGEN, URINE AUTO 0.2 mg/dL (0.0-2.0); WBC, URINE AUTO 2 /HPF (0-3)
[2024-05-11 14:51] LABS: BASO % 0.6 % (0.0-1.0); EOS # 0.2 10^3/uL (0.0-0.5); EOS % 2.6 % (0.0-3.0); HEMATOCRIT 41.8 % (42.0-52.0); HEMOGLOBIN 13.5 g/dl (13.5-17.5); LYMPH # 1.1 10^3/uL (1.5-5.0); LYMPH % 16.7 % (24.0-44.0); MEAN CORPUSCULAR HEMOGLOBIN 29.5 pg (27.0-33.0); MEAN CORPUSCULAR HGB CONC 32.3 g/dl (32.0-36.5); MEAN CORPUSCULAR VOLUME 91.3 fl (80.0-96.0); MONO # 0.6 10^3/uL (0.0-0.8); MONO % 8.7 % (2.0-8.0); NEUTROPHILS # 4.7 10^3/uL (1.5-8.5); NEUTROPHILS % 71.1 % (36.0-66.0); PLATELET COUNT, AUTOMATED 247 10^3/uL (150-450); RED BLOOD COUNT 4.58 10^6/uL (4.30-6.10); WHITE BLOOD COUNT 6.6 10^3/uL (4.0-10.0)
[2024-05-11 15:12] LABS: CREATININE, URINE 53.9 MG/DL; MAU/CREAT RATIO 22.2 MCG/MG (0.0-30.0)
[2024-05-11 15:13] LABS: PSA SCREENING 0.69 NG/ML (< 4.00)
[2024-05-11 15:17] LABS: URIC ACID 6.2 MG/DL (3.7-9.2)
[2024-05-11 15:18] LABS: FERRITIN 87.1 NG/ML (10.5-307.3)
[2024-05-11 15:21] LABS: ALBUMIN 3.7 G/DL (3.2-5.2); BILIRUBIN,TOTAL 0.4 MG/DL (0.3-1.2); CALCIUM LEVEL 9.4 MG/DL (8.3-10.6); CREATININE FOR GFR 1.36 MG/DL (0.70-1.30); GLOMERULAR FILTRATION RATE 56.3 (>49); POTASSIUM SERUM 4.4 MMOL/L (3.5-5.1); TOTAL PROTEIN 7.3 G/DL (5.7-8.2)
== END ==
LOC: M PLALAB 10:10
PROVIDERS: ATTEND Family Medicine
DX: I50.32 Chronic diastolic (congestive) heart failure (principal); E11.9 Type 2 diabetes mellitus without complications; Z12.5 Encounter for screening for malignant neoplasm of prostate; M10.9 Gout, unspecified; K74.00 Hepatic fibrosis, unspecified

== ENCOUNTER 2024-07-20 16:42 | Inpatient (IN) | payer BC ==
[~2024-07-20] VITALS: Ht 185.4 cm; Wt 118.2 kg
[~2024-07-20 16:42] MED LIST changes: -ROSU20TA61; -ROSU20TA61 PO; +ROSU20TA86; +ROSU20TA86 PO
[2024-07-20 17:33] LABS: BASO % 0.8 % (0.0-1.0); EOS # 0.1 10^3/uL (0.0-0.5); EOS % 1.5 % (0.0-3.0); HEMATOCRIT 36.8 % (42.0-52.0); HEMOGLOBIN 11.7 g/dl (13.5-17.5); LYMPH # 0.9 10^3/uL (1.5-5.0); LYMPH % 17.3 % (24.0-44.0); MEAN CORPUSCULAR HEMOGLOBIN 29.6 pg (27.0-33.0); MEAN CORPUSCULAR HGB CONC 31.8 g/dl (32.0-36.5); MEAN CORPUSCULAR VOLUME 93.2 fl (80.0-96.0); MONO # 0.4 10^3/uL (0.0-0.8); NEUTROPHILS # 3.8 10^3/uL (1.5-8.5); PLATELET COUNT, AUTOMATED 238 10^3/uL (150-450); RED BLOOD COUNT 3.95 10^6/uL (4.30-6.10); WHITE BLOOD COUNT 5.3 10^3/uL (4.0-10.0)
[2024-07-20 17:48] LABS: CK-MB VALUE MASS < 1.0 NG/ML (<3.6); LIPASE 36 U/L (12-53)
[2024-07-20 17:50] LABS: ALBUMIN 2.8 G/DL (3.2-5.2); ALKALINE PHOSPHATASE 69 U/L (40-129); ALT/SGPT 18 U/L (7.0-40); AST/SGOT 22 U/L (<34); BILIRUBIN,DIRECT < 0.1 MG/DL (<0.4); BILIRUBIN,TOTAL 0.2 MG/DL (0.3-1.2); BLOOD UREA NITROGEN 24 MG/DL (9-23); CALCIUM LEVEL 8.5 MG/DL (8.3-10.6); CARBON DIOXIDE LEVEL 25 MMOL/L (20-31); CHLORIDE LEVEL 115 MMOL/L (98-107); CREATININE FOR GFR 1.34 MG/DL (0.70-1.30); GLOMERULAR FILTRATION RATE 57.3 (>49); GLUCOSE, FASTING 82 MG/DL (74-106); POTASSIUM SERUM 4.7 MMOL/L (3.5-5.1); SODIUM LEVEL 146 MMOL/L (136-145)
[2024-07-20 17:52] LABS: THYROID STIMULATING HORMONE 2.222 uIU/ML (0.55-4.78)
[2024-07-20 17:53] LABS: CPK CREATINE PHOSPHOKINASE 61 U/L (46-171); MB/CK RELATIVE INDEX 1.63 (< OR =4)
[2024-07-20] MEDS ORDERED: ISOVUE-370 76% 100ML VIAL As Ordered ONE (18:45)
[2024-07-20 19:31] LABS: CK-MB VALUE MASS < 1.0 NG/ML (<3.6)
[2024-07-20 19:34] LABS: CPK CREATINE PHOSPHOKINASE 58 U/L (46-171); MB/CK RELATIVE INDEX 1.72 (< OR =4)
[2024-07-20] MEDS: APIXABAN 5 MG TAB (ELIQUIS) PO ONE (21:13)
[2024-07-20] MEDS ORDERED: ALFU10TA23 PO (22:25)
[2024-07-20] MEDS ORDERED: HOME MED LIST COMPLETE! XX SCH (22:30)
[2024-07-20] MEDS ORDERED: ALBUTEROL 90 MCG/ACT 8GM HFA INHALER INH PRN (22:35)
[2024-07-20 23:06] VITALS: BP 155/74; TEMP 97.9; O2SAT 97
[2024-07-20] MEDS: allopurinoL 300 MG TAB PO SCH (23:47)
[2024-07-20] MEDS: METOPROLOL TART 50 MG TAB PO SCH (23:48)
[2024-07-20] MEDS: ROSUVASTATIN 10 MG TAB (CRESTOR) PO SCH (23:48)
[2024-07-21 03:26] VITALS: BP 136/78; TEMP 97.2; O2SAT 96
[2024-07-21 05:13] LABS: HEMOGLOBIN A1c 5.5 % (4.0-6.0); INR 1.32; PROTHROMBIN TIME 16.6 SECONDS (12.5-14.5)
[2024-07-21] MEDS: LEVOTHYROXINE 50MCG TABLET (0.05MG) PO SCH (05:31)
[2024-07-21 05:35] LABS: CHOLESTEROL RISK RATIO 4.36 (<5); HDL CHOLESTEROL 27.7 MG/DL (>40); LDL CHOLESTEROL 63.9 MG/DL (<100); NON-HDL-C 93.3 MG/DL
[2024-07-21] MEDS ORDERED: GLUCOSE 4 GM CHEW PO PRN (07:00)
[2024-07-21] MEDS ORDERED: DEXTROSE 50% 50ML SYRINGE IV PRN (07:00)
[2024-07-21] MEDS ORDERED: GLUCAGON INJ 1MG VIAL SC PRN (07:00)
[2024-07-21] MEDS: ADVAIR HFA 230/21MCG INHALER INH SCH (07:26)
[2024-07-21] MEDS: INSULIN LISPRO (NovoLOG) PER UNIT SC SCH ×2 (07:30→20:51)
[2024-07-21 08:05] VITALS: BP 118/70; TEMP 97.7; O2SAT 96
[2024-07-21 08:28] LABS: BASO # 0.1 10^3/uL (0.0-0.2); BASO % 0.9 % (0.0-1.0); EOS # 0.1 10^3/uL (0.0-0.5); EOS % 2.2 % (0.0-3.0); HEMATOCRIT 38.6 % (42.0-52.0); HEMOGLOBIN 12.3 g/dl (13.5-17.5); LYMPH # 1.2 10^3/uL (1.5-5.0); LYMPH % 22.9 % (24.0-44.0); MEAN CORPUSCULAR HEMOGLOBIN 29.8 pg (27.0-33.0); MEAN CORPUSCULAR HGB CONC 31.9 g/dl (32.0-36.5); MEAN CORPUSCULAR VOLUME 93.5 fl (80.0-96.0); MONO # 0.5 10^3/uL (0.0-0.8); MONO % 8.9 % (2.0-8.0); NEUTROPHILS # 3.5 10^3/uL (1.5-8.5); NEUTROPHILS % 64.7 % (36.0-66.0); PLATELET COUNT, AUTOMATED 241 10^3/uL (150-450); RED BLOOD COUNT 4.13 10^6/uL (4.30-6.10); WHITE BLOOD COUNT 5.4 10^3/uL (4.0-10.0)
[2024-07-21 08:53] LABS: CALCIUM LEVEL 9.3 MG/DL (8.3-10.6); CREATININE FOR GFR 1.42 MG/DL (0.70-1.30); GLOMERULAR FILTRATION RATE 53.6 (>49); POTASSIUM SERUM 4.1 MMOL/L (3.5-5.1)
[2024-07-21] MEDS ORDERED: APIXABAN 5 MG TAB (ELIQUIS) PO SCH (09:00)
[2024-07-21] MEDS ORDERED: ATORVASTATIN 20 MG TAB PO SCH (09:00)
[2024-07-21] MEDS: FUROSEMIDE 40 MG TAB PO SCH (09:51)
[2024-07-21 11:34] VITALS: BP 108/69; TEMP 97; O2SAT 97
[2024-07-21 12:19] LABS: HEMATOCRIT 40.4 % (42.0-52.0)
[2024-07-21 16:29] VITALS: BP 130/78; TEMP 97.3; O2SAT 92
[2024-07-21 17:39] LABS: HEMATOCRIT 39.9 % (42.0-52.0)
[2024-07-21 19:19] VITALS: BP 122/74; TEMP 97.6; O2SAT 92
[2024-07-21] MEDS: CYANOCOBALAMIN 250 MCG TABLET PO SCH (20:51)
[2024-07-22 00:17] VITALS: BP 142/71; TEMP 97.7; O2SAT 93
[2024-07-22 04:03] VITALS: BP 137/69; TEMP 97.9; O2SAT 92
[2024-07-22 06:41] LABS: BASO % 0.5 % (0.0-1.0); EOS # 0.1 10^3/uL (0.0-0.5); EOS % 1.6 % (0.0-3.0); HEMATOCRIT 40.1 % (42.0-52.0); LYMPH % 14.9 % (24.0-44.0); MEAN CORPUSCULAR HEMOGLOBIN 29.7 pg (27.0-33.0); MEAN CORPUSCULAR HGB CONC 32.4 g/dl (32.0-36.5); MEAN CORPUSCULAR VOLUME 91.6 fl (80.0-96.0); MONO # 0.5 10^3/uL (0.0-0.8); MONO % 7.9 % (2.0-8.0); NEUTROPHILS # 4.8 10^3/uL (1.5-8.5); NEUTROPHILS % 74.6 % (36.0-66.0); PLATELET COUNT, AUTOMATED 240 10^3/uL (150-450); RED BLOOD COUNT 4.38 10^6/uL (4.30-6.10); WHITE BLOOD COUNT 6.4 10^3/uL (4.0-10.0)
[2024-07-22 07:10] LABS: CALCIUM LEVEL 9.6 MG/DL (8.3-10.6); CREATININE FOR GFR 1.4 MG/DL (0.70-1.30); GLOMERULAR FILTRATION RATE 54.5 (>49); POTASSIUM SERUM 4.2 MMOL/L (3.5-5.1)
[2024-07-22 08:18] VITALS: BP 157/79; TEMP 97.2; O2SAT 95
[2024-07-22] MEDS ORDERED: LISI20TA33 PO (11:31)
[2024-07-22 11:43] VITALS: BP 158/86
[2024-07-22 12:00] VITALS: BP 143/77; TEMP 97.6; O2SAT 96
[2024-07-25 00:37] LABS: CARDIOLIPIN IGA ANTIBODY < 2.0 APL-U/mL (<20.0); CARDIOLIPIN IGG ANTIBODY < 2.0 GPL-U/mL (<20.0); CARDIOLIPIN IGM ANTIBODY < 2.0 MPL-U/mL (<20.0)
== END 2024-07-22 13:52 | disposition home or self-care (01) | DRG 134 ==
LOC: EDBD 16:42 → M ED 16:42 → M ED INP 21:27 → M PCU 22:58
PROVIDERS: ADMIT Student in an Organized Health Care Education/Training Program; ATTEND Student in an Organized Health Care Education/Training Program
PROC: B246ZZZ Ultrasonography of Right and Left Heart (ICD-10-PCS; principal; 2024-07-22)
DX: I26.99 Other pulmonary embolism without acute cor pulmonale (principal); E11.22 Type 2 diabetes mellitus with diabetic chronic kidney disease; I13.0 Hypertensive heart and chronic kidney disease with heart failure and stage 1 through stage 4 chronic kidney disease, or unspecified chronic kidney disease; C67.9 Malignant neoplasm of bladder, unspecified; E53.8 Deficiency of other specified B group vitamins; D64.9 Anemia, unspecified; I50.32 Chronic diastolic (congestive) heart failure; E78.5 Hyperlipidemia, unspecified; I25.10 Atherosclerotic heart disease of native coronary artery without angina pectoris; I25.2 Old myocardial infarction; N18.9 Chronic kidney disease, unspecified; M54.50 Low back pain, unspecified; G89.29 Other chronic pain; K21.9 Gastro-esophageal reflux disease without esophagitis; M10.9 Gout, unspecified; J45.909 Unspecified asthma, uncomplicated; E03.9 Hypothyroidism, unspecified; Z90.49 Acquired absence of other specified parts of digestive tract; J44.9 Chronic obstructive pulmonary disease, unspecified; Z79.890 Hormone replacement therapy; Z79.899 Other long term (current) drug therapy; Z88.1 Allergy status to other antibiotic agents; R55 Syncope and collapse; M19.90 Unspecified osteoarthritis, unspecified site

== ENCOUNTER → 2024-07-26 | Outpatient (CLI) | payer BC ==
[~2024-07-26] MED LIST changes: +ALFU10TA23 PO
== END ==
LOC: M RAD 10:44
PROVIDERS: ATTEND Nurse Practitioner Family
DX: R42 Dizziness and giddiness (principal); R20.2 Paresthesia of skin

== ENCOUNTER → 2024-08-20 | Outpatient (CLI) | payer BC ==
[2024-08-20 12:33] LABS: D-DIMER QUANT 2.12 ug/mL (<0.5); INR 0.99; PARTIAL THROMBOPLASTIN TIME 29.4 SECONDS (24.8-34.2); PROTHROMBIN TIME 13.4 SECONDS (12.5-14.5)
[2024-08-20 13:08] LABS: BASO % 0.5 % (0.0-1.0); EOS # 0.2 10^3/uL (0.0-0.5); EOS % 2.7 % (0.0-3.0); HEMATOCRIT 42.7 % (42.0-52.0); HEMOGLOBIN 13.4 g/dl (13.5-17.5); LYMPH # 1.6 10^3/uL (1.5-5.0); LYMPH % 20.8 % (24.0-44.0); MEAN CORPUSCULAR HEMOGLOBIN 29.6 pg (27.0-33.0); MEAN CORPUSCULAR HGB CONC 31.4 g/dl (32.0-36.5); MEAN CORPUSCULAR VOLUME 94.3 fl (80.0-96.0); MONO # 0.6 10^3/uL (0.0-0.8); MONO % 8.2 % (2.0-8.0); NEUTROPHILS % 67.3 % (36.0-66.0); PLATELET COUNT, AUTOMATED 272 10^3/uL (150-450); RED BLOOD COUNT 4.53 10^6/uL (4.30-6.10); WHITE BLOOD COUNT 7.4 10^3/uL (4.0-10.0)
[2024-08-20 13:16] LABS: APPEARANCE, URINE HAZY (CLEAR); BACTERIA, URINE AUTO NEGATIVE (NEGATIVE); BILIRUBIN, URINE AUTO NEGATIVE (NEGATIVE); BLOOD, URINE BLOOD 2+ (NEGATIVE); COLOR, URINE RED (YELLOW); GLUCOSE, URINE (UA) AUTO NEGATIVE (NEGATIVE); KETONE, URINE AUTO NEGATIVE (NEGATIVE); LEUKOCYTE ESTERASE, URINE AUTO NEGATIVE (NEGATIVE); NITRITE, URINE AUTO NEGATIVE (NEGATIVE); PROTEIN, URINE AUTO 1+ mg/dL (NEGATIVE); RBC, URINE AUTO TNTC /HPF (0-3); SPECIFIC GRAVITY URINE AUTO 1.005 (1.002-1.035); SQUAMOUS EPITHELIAL CELL UR AU 0 /HPF (0-6); UROBILINOGEN, URINE AUTO 0.2 mg/dL (0.0-2.0); WBC, URINE AUTO TNTC /HPF (0-3)
[2024-08-20 13:45] LABS: ALBUMIN 3.5 G/DL (3.2-5.2); BILIRUBIN,TOTAL 0.4 MG/DL (0.3-1.2); CALCIUM LEVEL 9.5 MG/DL (8.3-10.6); CREATININE FOR GFR 1.49 MG/DL (0.70-1.30); GLOMERULAR FILTRATION RATE 50.5 (>49); POTASSIUM SERUM 4.4 MMOL/L (3.5-5.1); THYROID STIMULATING HORMONE 5.754 uIU/ML (0.55-4.78); TOTAL PROTEIN 7.9 G/DL (5.7-8.2)
[2024-08-20 13:46] LABS: FERRITIN 41.6 NG/ML (10.5-307.3)
[2024-08-20 13:47] LABS: FREE T4 1.18 NG/DL (0.89-1.76)
== END ==
LOC: M PLALAB 09:30
PROVIDERS: ATTEND Family Medicine
DX: I50.32 Chronic diastolic (congestive) heart failure (principal); I26.99 Other pulmonary embolism without acute cor pulmonale; E03.9 Hypothyroidism, unspecified; D49.4 Neoplasm of unspecified behavior of bladder

== ENCOUNTER → 2024-10-09 | Outpatient (CLI) | payer BC ==
[2024-10-09 17:36] LABS: BASO % 0.6 % (0.0-1.0); EOS # 0.2 10^3/uL (0.0-0.5); EOS % 2.1 % (0.0-3.0); HEMATOCRIT 40.8 % (42.0-52.0); LYMPH # 1.5 10^3/uL (1.5-5.0); LYMPH % 20.3 % (24.0-44.0); MEAN CORPUSCULAR HEMOGLOBIN 28.8 pg (27.0-33.0); MEAN CORPUSCULAR HGB CONC 31.9 g/dl (32.0-36.5); MEAN CORPUSCULAR VOLUME 90.3 fl (80.0-96.0); MONO # 0.6 10^3/uL (0.0-0.8); MONO % 8.1 % (2.0-8.0); NEUTROPHILS % 68.6 % (36.0-66.0); PLATELET COUNT, AUTOMATED 274 10^3/uL (150-450); RED BLOOD COUNT 4.52 10^6/uL (4.30-6.10); WHITE BLOOD COUNT 7.3 10^3/uL (4.0-10.0)
[2024-10-09 18:05] LABS: ALBUMIN 3.6 G/DL (3.2-5.2); BILIRUBIN,TOTAL 0.2 MG/DL (0.3-1.2); CALCIUM LEVEL 9.9 MG/DL (8.3-10.6); CHOLESTEROL RISK RATIO 3.33 (<5); CREATININE FOR GFR 1.6 MG/DL (0.70-1.30); FERRITIN 30.9 NG/ML (10.5-307.3); FREE T4 1.29 NG/DL (0.89-1.76); GLOMERULAR FILTRATION RATE 46.6 (>49); HEMOGLOBIN A1c 5.5 % (4.0-6.0); POTASSIUM SERUM 4.8 MMOL/L (3.5-5.1); THYROID STIMULATING HORMONE 2.687 uIU/ML (0.55-4.78); TOTAL PROTEIN 7.7 G/DL (5.7-8.2)
== END ==
LOC: M PLALAB 15:15
PROVIDERS: ATTEND Family Medicine
DX: I50.32 Chronic diastolic (congestive) heart failure (principal); I26.99 Other pulmonary embolism without acute cor pulmonale; E03.9 Hypothyroidism, unspecified; E11.9 Type 2 diabetes mellitus without complications

== ENCOUNTER → 2025-02-01 | Outpatient (CLI) | payer BC ==
[2025-02-01 13:18] LABS: ALBUMIN 3.6 G/DL (3.2-5.2); BILIRUBIN,TOTAL 0.2 MG/DL (0.3-1.2); CALCIUM LEVEL 9.9 MG/DL (8.3-10.6); CHOLESTEROL RISK RATIO 3.26 (<5); CREATININE FOR GFR 1.7 MG/DL (0.70-1.30); GLOMERULAR FILTRATION RATE 44.5 (>49); HDL CHOLESTEROL 47.2 MG/DL (>40); LDL CHOLESTEROL 81.4 MG/DL (<100); NON-HDL-C 106.8 MG/DL; POTASSIUM SERUM 5.2 MMOL/L (3.5-5.1); TOTAL PROTEIN 7.8 G/DL (5.7-8.2)
[2025-02-01 13:21] LABS: BASO % 0.6 % (0.0-1.0); EOS # 0.4 10^3/uL (0.0-0.5); EOS % 5.6 % (0.0-3.0); HEMATOCRIT 41.5 % (42.0-52.0); HEMOGLOBIN 12.7 g/dl (13.5-17.5); LYMPH # 1.6 10^3/uL (1.5-5.0); LYMPH % 24.2 % (24.0-44.0); MEAN CORPUSCULAR HEMOGLOBIN 27.2 pg (27.0-33.0); MEAN CORPUSCULAR HGB CONC 30.6 g/dl (32.0-36.5); MEAN CORPUSCULAR VOLUME 88.9 fl (80.0-96.0); MONO # 0.6 10^3/uL (0.0-0.8); MONO % 8.3 % (2.0-8.0); NEUTROPHILS % 60.5 % (36.0-66.0); PLATELET COUNT, AUTOMATED 318 10^3/uL (150-450); RED BLOOD COUNT 4.67 10^6/uL (4.30-6.10); WHITE BLOOD COUNT 6.7 10^3/uL (4.0-10.0)
[2025-02-01 13:30] LABS: THYROID STIMULATING HORMONE 2.71 uIU/ML (0.55-4.78)
[2025-02-01 13:31] LABS: FERRITIN 15.7 NG/ML (10.5-307.3)
[2025-02-01 13:32] LABS: FREE T4 1.32 NG/DL (0.89-1.76)
[2025-02-01 13:34] LABS: TOTAL 25(OH) VITAMIN D 28.7 NG/ML (20.0-100.0)
[2025-02-01 13:35] LABS: HEMOGLOBIN A1c 6.2 % (4.0-6.0)
[2025-02-01 14:04] LABS: PTH INTACT 33.8 PG/ML (18.5-88.0)
== END ==
LOC: M PLALAB 09:43
PROVIDERS: ATTEND Family Medicine
DX: I50.32 Chronic diastolic (congestive) heart failure (principal); D50.9 Iron deficiency anemia, unspecified; I26.99 Other pulmonary embolism without acute cor pulmonale; E11.9 Type 2 diabetes mellitus without complications; E55.9 Vitamin D deficiency, unspecified

== ENCOUNTER 2025-04-03 15:08 | Emergency (ER) | payer BC, SELFPAY ==
[~2025-04-03] VITALS: Ht 170.2 cm; Wt 139.0 kg
[2025-04-03 15:11] VITALS: BP 129/57; TEMP 98.1; O2SAT 95
== END 2025-04-03 18:45 | disposition left against medical advice (07) ==
LOC: M ED 15:08
DX: Z53.21 Procedure and treatment not carried out due to patient leaving prior to being seen by health care provider (principal)

== ENCOUNTER 2025-04-06 21:37 | Emergency (ER) | payer SELFPAY ==
[~2025-04-06] VITALS: Ht 170.2 cm; Wt 139.0 kg
[2025-04-07 09:40] VITALS: BP 134/75; TEMP 97.2; O2SAT 95
== END 2025-04-07 09:40 | disposition home or self-care (01) ==
LOC: M ED 21:37
DX: Z43.3 Encounter for attention to colostomy (principal); I10 Essential (primary) hypertension; E78.5 Hyperlipidemia, unspecified; K21.9 Gastro-esophageal reflux disease without esophagitis; E11.9 Type 2 diabetes mellitus without complications; J45.909 Unspecified asthma, uncomplicated; Z86.79 Personal history of other diseases of the circulatory system; Z88.1 Allergy status to other antibiotic agents; Z88.8 Allergy status to other drugs, medicaments and biological substances; Z79.52 Long term (current) use of systemic steroids; Z79.899 Other long term (current) drug therapy

== ENCOUNTER → 2025-08-03 | Outpatient (CLI) | payer MEDICARE ==
[~2025-08-03] MED LIST changes: -COLC0.6T47; +COLC0.6T53; +CYAN250T5 PO; -IBUP-1022 PO; +IBUP600T42 PO; -VITA250T7 PO
[2025-08-03 09:49] LABS: BASO # 0.1 10^3/uL (0.0-0.2); BASO % 0.7 % (0.0-1.0); EOS # 0.3 10^3/uL (0.0-0.5); EOS % 4.2 % (0.0-3.0); LYMPH # 1.5 10^3/uL (1.5-5.0); LYMPH % 20.8 % (24.0-44.0); MONO # 0.5 10^3/uL (0.0-0.8); MONO % 7.1 % (2.0-8.0); NEUTROPHILS # 4.7 10^3/uL (1.5-8.5); NEUTROPHILS % 66.4 % (36.0-66.0); PLATELET COUNT, AUTOMATED 316 10^3/uL (150-450)
[2025-08-03 10:24] LABS: ALT/SGPT 20.0 U/L (7.0-40); AST/SGOT 22.0 U/L (<34); CALCIUM LEVEL 9.3 MG/DL (8.3-10.6); CARBON DIOXIDE LEVEL 32.0 MMOL/L (20-31); CHLORIDE LEVEL 103.0 MMOL/L (98-107); CREATININE FOR GFR 1.74 MG/DL (0.70-1.30); GLOMERULAR FILTRATION RATE 43.2 (>49); POTASSIUM SERUM 4.7 MMOL/L (3.5-5.1); SODIUM LEVEL 144.0 MMOL/L (136-145)
[2025-08-03 10:31] LABS: PSA SCREENING 0.04 NG/ML (< 4.00)
[2025-08-03 10:35] LABS: ESTIMATED AVERAGE GLUCOSE 126.0 MG/DL (60-110)
[2025-08-03 10:37] LABS: FREE T4 1.37 NG/DL (0.89-1.76)
[2025-08-03 10:38] LABS: VITAMIN B12 LEVEL 773.0 PG/ML (211-911)
== END ==
LOC: M PLALAB 08-02 08:51 → M LAB 08:55
PROVIDERS: ATTEND Family Medicine
DX: I50.32 Chronic diastolic (congestive) heart failure (principal); D50.9 Iron deficiency anemia, unspecified; I26.99 Other pulmonary embolism without acute cor pulmonale; E11.9 Type 2 diabetes mellitus without complications; E03.9 Hypothyroidism, unspecified; Z12.5 Encounter for screening for malignant neoplasm of prostate; K74.00 Hepatic fibrosis, unspecified
CPT/HCPCS: 36415; 80053; 81517; 82607; 82728; 83036; 83880; 84439; 84443; 85025; G0103